=== PATIENT | male | born 1940 | race Caucasian/White ===

== ENCOUNTER → 2023-11-20 08:54 | Outpatient (REF) | payer MEDICARE, BC, SELFPAY ==
[2023-11-20 09:38] LABS: Blood Urea Nitrogen 34 mg/dl (9-20); Calcium 8.7 mg/dl (8.4-10.2); Carbon Dioxide 32 mmol/L (22-30); Chloride 93 mmol/L (98-107); Glucose 203 mg/dl (70-99); Potassium 4.4 mmol/L (3.5-5.1); Sodium 132 mmol/L (135-145); eGFR > 60.00
[2023-11-20 12:28] LABS: Osmolality Urine 390 mOsm/kg (300-900)
== END ==
LOC: REG 08:54
PROVIDERS: ATTENDING PHYSICIAN Specialist; FAMILY PHYSICIAN Student in an Organized Health Care Education/Training Program
DX: E63.8 Other specified nutritional deficiencies (principal); E87.1 Hypo-osmolality and hyponatremia; E87.5 Hyperkalemia
CPT/HCPCS: 36415; 80048; 83935; 84550

== ENCOUNTER 2023-11-27 03:06 | Emergency (ER) | payer MEDICARE, BC, SELFPAY ==
[2023-11-27 03:27] VITALS: BP 149/75
[2023-11-27 03:32] VITALS: BP 149/75
[2023-11-27 04:00] VITALS: BP 117/61
[2023-11-27 04:15] LABS: % Basophils 0.4 % (0-2); % Eosinophils 0.8 % (0-6); % Immature Granulocytes 1.5 % (0-0.5); % Monocytes 2.7 % (1.7-9.3); % Neutrophils 90.6 % (42.2-75.2); Absolute Eosinophils 0.1 10^3/uL (0-0.7); Absolute Immature Granulocytes 0.2 10^3/uL (0-0.05); Absolute Lymphocytes 0.5 10^3/uL (1.2-3.4); Absolute Monocytes 0.3 10^3/uL (0.1-0.6); Absolute Neutrophils 10.2 10^3/uL (1.4-6.5); Hemoglobin 11.1 g/dL (13.0-18.0); Mean Corp Hgb Conc. 33.6 g/dL (33.0-37.0); Mean Corpuscular Hgb 29.5 pg (27.0-31.0); Mean Corpuscular Volume 87.8 fL (80.0-94.0); Mean Platelet Volume 10.5 fL (7.4-10.4); Nucleated Red Blood Cells % 0 % (-); Platelet Count 595 10^3/uL (130-400); Red Blood Cell Count 3.76 10^6/uL (4.70-6.10); Red Cell Dist. Width 19.1 % (11.5-14.5); White Blood Cell Count 11.2 10^3/uL (4.8-10.8)
[2023-11-27 04:31] LABS: ALT (SGPT) 27 U/L (0-50); AST (SGOT) 34 U/L (17-59); Albumin 3.2 g/dl (3.5-5.0); Alkaline Phosphatase 83 U/L (38-126); Blood Urea Nitrogen 33 mg/dl (9-20); Calcium 8.4 mg/dl (8.4-10.2); Carbon Dioxide 30 mmol/L (22-30); Chloride 98 mmol/L (98-107); Glucose 102 mg/dl (70-99); Potassium 4.1 mmol/L (3.5-5.1); Sodium 133 mmol/L (135-145); Total Bilirubin 0.7 mg/dl (0.2-1.3); Total Protein 5.3 g/dl (6.3-8.2); eGFR > 60.00
--- NOTE | 2023-11-27 05:58 | ED.GENMED ---
History of Present Illness
General
Chief Complaint: Skin Surface Trauma
Source: patient and spouse
Exam Limitations: none
Time Seen by Provider: 11/27/23 04:16
Nursing documentation reviewed up to this point in time: agreed with
Travel History
Have you had any contact with someone who has COVID-19?: No
Do you have any symptoms of coronavirus? Fever > 100 degrees, chills, cough, shortness of breath, sore throat, loss of taste or smell, muscle aches, or headache?: No
History of Present Illness
History of Present Illness:
This is an 83-year-old gentleman who resides at home with his . 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 Area has been healing well with a quarter sized scab on the top of his head.
Tonight however he awoke to go to the bathroom and noticed a fair amount of blood on his pillow as well as the top of his head and he has had persistent oozing of blood from biopsy site top of his head. He denies fall, denies dizziness nor
lightheadedness. Denies scratching or picking at the scab.
He does have a history of paroxysmal atrial fibrillation and is chronically maintained on Eliquis as well as low-dose aspirin.
He has had no chest pain nor shortness of breath. No abdominal pain, no nausea or vomiting. He denies fevers or chills.
He is chronically hard of hearing and uses hearing aids.
Past History
Past History
ED Past Medical History: Arrthythmia (On determined arrhythmia suspected A. 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
ED Past Surgical History: Bowel resection (With colonoscopy then reversal in 1995), Cardiac (OUMAR cardioversion 2009), Orthopedic and Other (Hernia repair 1995 and 2008)
Social History
Tobacco: Non-smoker
Alcohol: None
Drug: None
Personal:
Living: with family
Employment: Retired
Family History
Family History: Hypertension
Phy Exam
Physical Exam
Physical Exam:
GENERAL: 83-year-old gentleman appears his stated age, bright and alert, pleasant, appears in no acute distress. There is a bloodsoaked towel atop his head.
Scalp: At the apex of the scalp is a 2.5 cm rounded superficial ulceration with mild persistent oozing of blood from anterior edge of this wound. Bleeding is probably temporized with local pressure.
EYE: pupils equal and reactive. anicteric
NECK: Supple, nontender, no meningismus, no significant adenopathy.
ENT: oral mucosa is moist. No rhinorrhea.
CARDIAC: Regular rate and rhythm. no murmur.
LUNGS: Clear breath sounds bilaterally, no acute respiratory distress, no wheezes/rales/rhonchi
ABDOMEN: Soft, nondistended, without focal tenderness, normoactive BS.
NEUROLOGICAL: Alert and oriented x3, no focal neuro deficits.
SKIN: Warm and dry, normal color, skin intact. No rash.
MUSCULOSKELETAL: No C/C/E. peripheral pulses are full and equal b/l. No palpable tenderness.
PSYCH: Normal and appropriate interaction.
Course
Orders/Labs/Results
Orders:
Orders
11/27/23 04:04
CMP [Comprehensive Metabolic Panel] Urgent
Complete Blood Count/With Diff Urgent
11/27/23 04:20
Silver Nitrate Applicator 1 each .ROUTE .STK-MED ONE
Abnormal Lab Results
11/27/23
04:04
WBC 11.2 H 10^3/uL
(4.8-10.8)
RBC 3.76 L 10^6/uL
(4.70-6.10)
Hgb 11.1 L g/dL
(13.0-18.0)
Hct 33.0 L %
(39.0-52.0)
RDW 19.1 H %
(11.5-14.5)
Plt Count 595 H 10^3/uL
(130-400)
MPV 10.5 H fL
(7.4-10.4)
Abs Immat Gran (auto) 0.2 H 10^3/uL
(0-0.05)
Absolute Neuts (auto) 10.2 H 10^3/uL
(1.4-6.5)
Absolute Lymphs (auto) 0.5 L 10^3/uL
(1.2-3.4)
Immature Gran % 1.5 H %
(0-0.5)
Neutrophils % 90.6 H %
(42.2-75.2)
Lymphocytes % 4.0 L %
(20.5-51.1)
Sodium 133 L mmol/L
(135-145)
BUN 33 H mg/dl
(9-20)
Creatinine 0.6 L mg/dL
(0.7-1.3)
Glucose 102 H mg/dl
(70-99)
Total Protein 5.3 L g/dl
(6.3-8.2)
Albumin 3.2 L g/dl
(3.5-5.0)
11/27/23 04:04
11/27/23 04:04
Vital Signs
Initial and Last Documented VS:
Initial Vital Signs
Temp Pulse Resp BP Pulse Ox
97.8 F 77 11 149/75 100
11/27/23 03:27 11/27/23 03:27 11/27/23 03:27 11/27/23 03:27 11/27/23 03:27
Last Documented Vital Signs
Temp Pulse Resp BP Pulse Ox
97.8 F 72 19 117/61 99
11/27/23 03:27 11/27/23 04:00 11/27/23 04:00 11/27/23 04:00 11/27/23 04:00
MDM/Problems Addressed
Differential Diagnosis Includes:
Patient presents with acute bleeding from post surgical/skin biopsy site apex of the scalp.
Area of locally anesthetized with 1% lidocaine with epinephrine.
I initially attempted hemostasis with local pressure and Gelfoam which was unsuccessful.
Topical silver nitrate application however has been successful in cessation of bleeding.
Monitor amount of blood and a small towel from home and a fair amount of blood streaking about the top of his head but patient remains hemodynamically stable.
Labs show hemoglobin of 11.1 which is trended down slightly from 11.9�12.8 August to November 04, 2023.
BUN of 33, at patient's baseline.
Will continue to observe in the ER for potential recurrent bleeding.
Would recommend he hold his Eliquis at least over the next 2 days.
If no return of bleeding will discharge to home with recommendations for prompt follow-up with financial accounting manager this week for recheck.
Chronic conditions affecting care: Arrhythmia (Chronically anticoagulated with Eliquis and low-dose aspirin) and Other (Acute blood loss anemia August 2023 related to right thigh hematoma)
*Pulse Oximetry
Patient hypoxic: no
*Critical Care Note
Total Time (30-74mins, 75-104mins- exclusive of procedures): Not Applicable
Update Note
Update Note:
11/27/2023 0622 AM
Scalp wound site remains dry and intact.
Will discharge to home with recommendations to touch base with financial accounting manager today for prompt wound recheck.
Recommend holding Eliquis at least over the next 3 days.
Local wound care discussed.
Return precautions discussed.
ED Attending Note
-
Portions of this chart may have been created with voice recognition software.� Occasional wrong word or��sound alike� substitutions may have occurred due to the inherent limitations of voice recognition software.
Discharge Plan
Departure
Patient Disposition: Home (Routine Discharge)
Date of Disposition: 11/27/23
Time of Disposition: 06:18
Patient with high blood pressure during this ER visit?: No
Condition: Good
Discharge Problem:
post biopsy site bleeding
Instructions: Bleeding After Surgery
Prescriptions:
No Action
esomeprazole magnesium [Nexium] 40 MG capsule,delayed release(DR/EC)
40 mg PO BID
tamsulosin 0.4 MG capsule
0.8 mg PO QPM
famotidine 40 MG tablet
40 mg PO DAILY
sildenafil [Viagra] 100 MG tablet
100 mg PO DAILYPRN PRN (Reason: ED)
Systane Ultra 10 ML drops
2 drp BOTH EYES DAILYPRN PRN (Reason: dry eyes)
Jakafi 10 MG tablet
10 mg PO BID@
loperamide 2 MG capsule
2 mg PO Q6HPRN PRN (Reason: diarrhea)
alprazolam 0.25 MG tablet
0.25 mg PO HS
Patient Comments:
08/17/2023: last filled 07/01/23, 30 tabs for 30 days from [facility]
finasteride 5 MG tablet
5 mg PO DAILY
azelaic acid [Finacea] 30 GM gel
1 applic TP BIDPRN PRN (Reason: rosacea)
polyethylene glycol 3350 [Miralax] 17 gram Powder In Packet
17 g PO DAILY PRN (Reason: constipation)
lactase [Lactaid] 3,000 unit Tablet
6,000 unit PO AC PRN (Reason: lactose intolerance)
furosemide [Lasix] 20 MG tablet
20 mg PO DAILY
pyridostigmine bromide 60 mg tablet
120 mg PO BIDPRN PRN (Reason: myasthenia graves)
acetaminophen 325 mg Tablet
650 mg PO Q4HPRN PRN (Reason: mild pain/ fever>100.5F) Qty: 100 0RF
Referrals:
Cristine Mercer MD [Family Provider] -
Activity Restrictions/Additional Instructions:
Hold your Eliquis over the next 3 to 4 days. You can continue with low-dose aspirin.
Keep the scalp area clean and dry, avoid touching, combing and avoid showering over the next 2 days.
Call your financial accounting manager today for follow-up appointment/wound check.
If bleeding recurs, hold pressure over the area for at least 10 to 15 minutes. If this is unsuccessful, continue to hold pressure for 20 minutes, if bleeding persist return to the ED for further evaluation.
Interventions
Interventions:
*Risk Screen - Suicide Last Done: 11/27/23 03:27
*General Assessment Last Done: 11/27/23 03:27
*Neglect/Abuse Screening Last Done: 11/27/23 03:27
ED- Fall Risk Assessment Last Done: 11/27/23 03:55
*ED COVID-19 Vaccine History Last Done: 11/27/23 03:55
ED-Skin Assessment Last Done: 11/27/23 03:55
== END 2023-11-27 06:29 | disposition home or self-care (01) ==
LOC: EMR 03:06
PROVIDERS: EMERGENCY PHYSICIAN Emergency Medicine; FAMILY PHYSICIAN Student in an Organized Health Care Education/Training Program
DX: L76.21 Postprocedural hemorrhage of skin and subcutaneous tissue following a dermatologic procedure (principal); Y84.8 Other medical procedures as the cause of abnormal reaction of the patient, or of later complication, without mention of misadventure at the time of the procedure; Z79.01 Long term (current) use of anticoagulants; I48.0 Paroxysmal atrial fibrillation
CPT/HCPCS: 99283; 80053; 85025

== ENCOUNTER → 2023-12-12 10:37 | Outpatient (REF) | payer MEDICARE, BC, SELFPAY ==
[2023-12-12 12:02] LABS: % Basophils 0.4 % (0-2); % Eosinophils 0.5 % (0-6); % Immature Granulocytes 1.5 % (0-0.5); % Lymphocytes 3.4 % (20.5-51.1); % Monocytes 3.1 % (1.7-9.3); % Neutrophils 91.1 % (42.2-75.2); Absolute Basophils 0.1 10^3/uL (0-0.2); Absolute Eosinophils 0.1 10^3/uL (0-0.7); Absolute Immature Granulocytes 0.3 10^3/uL (0-0.05); Absolute Lymphocytes 0.6 10^3/uL (1.2-3.4); Absolute Monocytes 0.6 10^3/uL (0.1-0.6); Absolute Neutrophils 16.6 10^3/uL (1.4-6.5); Hematocrit 35.6 % (39.0-52.0); Hemoglobin 11.7 g/dL (13.0-18.0); Mean Corp Hgb Conc. 32.9 g/dL (33.0-37.0); Mean Corpuscular Hgb 29.8 pg (27.0-31.0); Mean Corpuscular Volume 90.6 fL (80.0-94.0); Mean Platelet Volume 10.9 fL (7.4-10.4); Nucleated Red Blood Cells % 0 % (-); Platelet Count 802 10^3/uL (130-400); Red Blood Cell Count 3.93 10^6/uL (4.70-6.10); Red Cell Dist. Width 19.9 % (11.5-14.5); White Blood Cell Count 18.3 10^3/uL (4.8-10.8)
[2023-12-12 12:41] LABS: ALT (SGPT) 25 U/L (0-50); AST (SGOT) 41 U/L (17-59); Albumin 4.3 g/dl (3.5-5.0); Alkaline Phosphatase 87 U/L (38-126); Blood Urea Nitrogen 48 mg/dl (9-20); Carbon Dioxide 33 mmol/L (22-30); Chloride 94 mmol/L (98-107); Glucose 116 mg/dl (70-99); Iron 64 ug/dl (49-181); LDH 927 U/L (120-246); Potassium 4.8 mmol/L (3.5-5.1); Sodium 131 mmol/L (135-145); Total Bilirubin 0.9 mg/dl (0.2-1.3); Total Protein 6.7 g/dl (6.3-8.2); eGFR > 60.00
[2023-12-12 12:50] LABS: Percent Saturation 17 % (20-50); Total Iron Binding Capacity 371 ug/dl (261-462)
[2023-12-12 13:30] LABS: Ferritin 85.7 ng/ml (17.9-464.0)
== END ==
LOC: REG 10:37
PROVIDERS: ATTENDING PHYSICIAN Internal Medicine Hematology & Oncology
DX: D45 Polycythemia vera (principal); C43.30 Malignant melanoma of unspecified part of face
CPT/HCPCS: 36415; 80053; 82728; 83540; 83550; 83615; 85025

== ENCOUNTER → 2023-12-24 07:01 | Outpatient (REF) | payer MEDICARE, BC, SELFPAY ==
[2023-12-24 08:03] LABS: INR 1.34; PT 16.6 Sec (11.4-14.6)
[2023-12-24 08:04] LABS: APTT 37.4 Sec (23.4-35.0)
== END ==
LOC: REG 07:01
PROVIDERS: ATTENDING PHYSICIAN Internal Medicine; REFERRING PHYSICIAN Internal Medicine Hematology & Oncology
DX: Z01.818 Encounter for other preprocedural examination (principal); D45 Polycythemia vera
CPT/HCPCS: 36415; 85610; 85730

== ENCOUNTER → 2023-12-25 07:04 | Outpatient (REF) | payer MEDICARE, BC, SELFPAY ==
[2023-12-25 08:42] LABS: PT 17.2 Sec (11.4-14.6)
[2023-12-25 08:43] LABS: APTT 37.9 Sec (23.4-35.0)
[2024-01-01 19:27] LABS: Factor VIII Activity 97 % (56-191); Ristocetin Cofactor Activity 79 % (51-215); Von Willebrands Factor Antigen 125 % (52-214)
== END ==
LOC: REG 07:04
PROVIDERS: ATTENDING PHYSICIAN Internal Medicine Hematology & Oncology; FAMILY PHYSICIAN Student in an Organized Health Care Education/Training Program
DX: D45 Polycythemia vera (principal); C43.30 Malignant melanoma of unspecified part of face
CPT/HCPCS: 36415; 85240; 85245; 85246; 85247; 85610; 85730

== ENCOUNTER → 2024-01-14 08:20 | Outpatient (REF) | payer MEDICARE, BC, SELFPAY ==
[2024-01-14 08:52] LABS: % Basophils 0.4 % (0-2); % Eosinophils 0.7 % (0-6); % Immature Granulocytes 1.2 % (0-0.5); % Lymphocytes 3.2 % (20.5-51.1); % Monocytes 2.7 % (1.7-9.3); % Neutrophils 91.8 % (42.2-75.2); Absolute Basophils 0.1 10^3/uL (0-0.2); Absolute Eosinophils 0.1 10^3/uL (0-0.7); Absolute Immature Granulocytes 0.2 10^3/uL (0-0.05); Absolute Lymphocytes 0.5 10^3/uL (1.2-3.4); Absolute Monocytes 0.4 10^3/uL (0.1-0.6); Hematocrit 38.2 % (39.0-52.0); Mean Corp Hgb Conc. 31.4 g/dL (33.0-37.0); Mean Corpuscular Hgb 28.8 pg (27.0-31.0); Mean Corpuscular Volume 91.6 fL (80.0-94.0); Mean Platelet Volume 10.7 fL (7.4-10.4); Nucleated Red Blood Cells % 0 % (-); Platelet Count 680 10^3/uL (130-400); Red Blood Cell Count 4.17 10^6/uL (4.70-6.10); Red Cell Dist. Width 17.2 % (11.5-14.5); White Blood Cell Count 16.4 10^3/uL (4.8-10.8)
[2024-01-14 09:33] LABS: ALT (SGPT) 23 U/L (0-50); AST (SGOT) 37 U/L (17-59); Albumin 4.6 g/dl (3.5-5.0); Alkaline Phosphatase 82 U/L (38-126); Blood Urea Nitrogen 31 mg/dl (9-20); Calcium 9.5 mg/dl (8.4-10.2); Carbon Dioxide 29 mmol/L (22-30); Chloride 93 mmol/L (98-107); Glucose 186 mg/dl (70-99); Iron 59 ug/dl (49-181); Sodium 132 mmol/L (135-145); Total Bilirubin 0.8 mg/dl (0.2-1.3); Total Protein 6.8 g/dl (6.3-8.2); eGFR > 60.00
[2024-01-14 09:42] LABS: Potassium 4.7 mmol/L (3.5-5.1)
[2024-01-14 09:43] LABS: Percent Saturation 13 % (20-50); Total Iron Binding Capacity 431 ug/dl (261-462)
[2024-01-14 09:55] LABS: Ferritin 49.7 ng/ml (17.9-464.0)
[2024-01-14 11:04] LABS: LDH 950 U/L (120-246)
== END ==
LOC: REG 08:20
PROVIDERS: ATTENDING PHYSICIAN Internal Medicine Hematology & Oncology
DX: D45 Polycythemia vera (principal); C43.30 Malignant melanoma of unspecified part of face
CPT/HCPCS: 36415; 80053; 82728; 83540; 83550; 83615; 85025

== ENCOUNTER → 2024-02-10 14:01 | Outpatient (REF) | payer MEDICARE, BC, SELFPAY ==
[2024-02-10 14:53] LABS: % Basophils 0.4 % (0-2); % Eosinophils 0.8 % (0-6); % Immature Granulocytes 1.9 % (0-0.5); % Lymphocytes 5.3 % (20.5-51.1); % Monocytes 1.8 % (1.7-9.3); % Neutrophils 89.8 % (42.2-75.2); Absolute Basophils 0.1 10^3/uL (0-0.2); Absolute Eosinophils 0.1 10^3/uL (0-0.7); Absolute Immature Granulocytes 0.3 10^3/uL (0-0.05); Absolute Lymphocytes 0.9 10^3/uL (1.2-3.4); Absolute Monocytes 0.3 10^3/uL (0.1-0.6); Absolute Neutrophils 14.5 10^3/uL (1.4-6.5); Hematocrit 37.1 % (39.0-52.0); Hemoglobin 11.9 g/dL (13.0-18.0); Mean Corp Hgb Conc. 32.1 g/dL (33.0-37.0); Mean Corpuscular Hgb 27.2 pg (27.0-31.0); Mean Corpuscular Volume 84.9 fL (80.0-94.0); Nucleated Red Blood Cells % 0 % (-); Platelet Count 858 10^3/uL (130-400); Red Blood Cell Count 4.37 10^6/uL (4.70-6.10); Red Cell Dist. Width 16.3 % (11.5-14.5); White Blood Cell Count 16.1 10^3/uL (4.8-10.8)
[2024-02-10 15:04] LABS: ALT (SGPT) 24 U/L (0-50); AST (SGOT) 40 U/L (17-59); Albumin 4.7 g/dl (3.5-5.0); Alkaline Phosphatase 80 U/L (38-126); Blood Urea Nitrogen 50 mg/dl (9-20); Calcium 9.4 mg/dl (8.4-10.2); Carbon Dioxide 32 mmol/L (22-30); Chloride 96 mmol/L (98-107); Glucose 88 mg/dl (70-99); Iron 63 ug/dl (49-181); LDH 935 U/L (120-246); Potassium 5.2 mmol/L (3.5-5.1); Sodium 133 mmol/L (135-145); Total Bilirubin 0.6 mg/dl (0.2-1.3); Total Protein 7.1 g/dl (6.3-8.2); eGFR > 60.00
[2024-02-10 15:13] LABS: Percent Saturation 14 % (20-50); Total Iron Binding Capacity 450 ug/dl (261-462)
[2024-02-10 15:39] LABS: Ferritin 42.5 ng/ml (17.9-464.0)
[2024-02-11 13:22] LABS: Absolute Neutrophils -Man Diff 14.8 10^3/uL (1.4-6.5); Band Neutrophils 1 % (0-3); Lymphocytes 5 % (20-51); Monocytes 3 % (2-9); Platelets Checked Yes; Segmented Neutrophils 91 % (42-75)
[2024-02-11 13:23] LABS: Anisocytosis 1+; Normal RBC Morphology No; Poikilocytosis 1+
[2024-02-11 13:24] LABS: Acanthocytes Occasional; Ovalocytes 1+; Total Cells Counted 100
== END ==
LOC: REG 14:01
PROVIDERS: ATTENDING PHYSICIAN Internal Medicine Hematology & Oncology; FAMILY PHYSICIAN Student in an Organized Health Care Education/Training Program; OTHER PHYSICIAN Specialist; REFERRING PHYSICIAN Internal Medicine Cardiovascular Disease
DX: D45 Polycythemia vera (principal); C43.30 Malignant melanoma of unspecified part of face
CPT/HCPCS: 36415; 80053; 82728; 83540; 83550; 83615; 85025

== ENCOUNTER 2024-03-16 06:03 | Inpatient (IN) | payer MEDICARE, BC, SELFPAY ==
[2024-03-02 10:47] VITALS: BMI 22.3
[2024-03-02 11:39] LABS: % Basophils 0.4 % (0-2); % Eosinophils 0.9 % (0-6); % Immature Granulocytes 1.7 % (0-0.5); % Monocytes 2.7 % (1.7-9.3); % Neutrophils 89.3 % (42.2-75.2); Absolute Basophils 0.1 10^3/uL (0-0.2); Absolute Eosinophils 0.2 10^3/uL (0-0.7); Absolute Immature Granulocytes 0.3 10^3/uL (0-0.05); Absolute Lymphocytes 0.9 10^3/uL (1.2-3.4); Absolute Monocytes 0.5 10^3/uL (0.1-0.6); Absolute Neutrophils 16.5 10^3/uL (1.4-6.5); Hematocrit 36.4 % (39.0-52.0); Hemoglobin 11.6 g/dL (13.0-18.0); Mean Corp Hgb Conc. 31.9 g/dL (33.0-37.0); Mean Corpuscular Hgb 26.7 pg (27.0-31.0); Mean Corpuscular Volume 83.7 fL (80.0-94.0); Nucleated Red Blood Cells % 0 % (-); Platelet Count 786 10^3/uL (130-400); Red Blood Cell Count 4.35 10^6/uL (4.70-6.10); Red Cell Dist. Width 16.9 % (11.5-14.5); White Blood Cell Count 18.5 10^3/uL (4.8-10.8)
[2024-03-02 11:58] LABS: INR 1.54; PT 18.3 Sec (11.4-14.6)
[2024-03-02 12:41] LABS: ALT (SGPT) 26 U/L (0-50); AST (SGOT) 43 U/L (17-59); Albumin 4.6 g/dl (3.5-5.0); Alkaline Phosphatase 94 U/L (38-126); Blood Urea Nitrogen 29 mg/dl (9-20); Calcium 9.1 mg/dl (8.4-10.2); Carbon Dioxide 33 mmol/L (22-30); Chloride 94 mmol/L (98-107); Estimated Creatinine Clearance 57 ml/min; Glucose 81 mg/dl (70-99); Sodium 135 mmol/L (135-145); Total Bilirubin 0.6 mg/dl (0.2-1.3); eGFR > 60.00
[2024-03-16] VITALS (15 sets, daily range): BP systolic 93–129; BP diastolic 63–90; BMI 22.3
[2024-03-16 08:52] LABS: ACT-LR - POC 244 Seconds (116-155)
--- NOTE | 2024-03-16 09:36 | ITS.CL.PN ---
Regional Education Manager - Procedure Note
Procedure
Procedure Note:
Watchman implantation report
Date: March 16, 2024
Referring: Dr. Herminio Nelson
History: History of spontaneous right thigh bleeding and polycythemia vera. History of TIA and CVA with permanent atrial fibrillation.
Device implantation: Dr. Bowman
Transseptal twister operator: Dr. Nelson
Procedure report:
After informed consent and patient safety timeout the patient was put under general anesthesia and Dr. Munguia performed transesophageal echo. At baseline there was a moderate pericardial effusion without right atrial or right ventricular collapse
and as below right atrial pressure of 6 and left atrial pressure of 20 demonstrating with both visual and hemodynamic evidence demonstrating no tamponade physiology. As such we proceeded with the patient's watchman implantation. Transthoracic echo
pictures will be taken post procedure and checked in 6 weeks in follow-up. Under ultrasound guidance an 8 Sami and 9 Sami short sheath were placed in the right femoral vein and upgraded to the 10 Sami steerable sheath of transseptal puncture
and ultimately the watchman sheath.
After ruling out left atrial thrombus the patient was heparinized for an ACT between 350-400 seconds and under intracardiac ultrasound guidance transseptal puncture was performed. Right atrial pressure implantation millimeters mercury and left
atrial pressure 20 millimeters mercury.
Baseline intracardiac ultrasound demonstrated no pericardial effusion post procedure demonstrated no pericardial effusion.
Once transseptal puncture was performed over an ProTrac wire the SL 1 sheath was exchanged for a watchman sheath double curve. An appendage gram was performed demonstrating cauliflower anatomy. Pigtail catheter was placed into the left atrial
appendage and intravenous dye given demonstrating 22 mm ostium.
We then utilized a 27 millimeters device and no leaks were seen post device deployment. 22 to 34% compression was noted in the device after deployment. A tilt test was performed demonstrating stability of the device and the device was then
deployed. Sheaths and catheters removed from the left atrium and heparin was reversed. Catheters removed from the femoral veins with [id number] suture applied. The patient tolerated the procedure well.
Scnviy-[id number] suture was placed to the right groin.
Impression: Status post watchman placement
Plan:
Given the new diagnosis of pericardial effusion we will repeat a transthoracic echo in 6 weeks and his OUMAR at 3 months with an anticoagulation plan of aspirin plus half dose Eliquis 2.5 mg twice daily until the OUMAR. His effusion is not
hemodynamically significant and appears serous we will follow this observantly with serial echocardiograms and follow for clinical symptoms.
--- NOTE | 2024-03-16 10:43 | WATCHMAN.MD ---
Watchman Implant
-
ELECTROPHYSIOLOGY/INTERVENTIONAL PROCEDURE REPORT
Date of Procedure: March 16, 2024
Referring: Dr. Herminio Nelson
Assisting Physician: Dr. Herminio Nelson
PROCEDURES:
1. Left atrial appendage occlusion device using 27 mm WATCHMAN FLX device
2. Intracardiac echocardiography
3. Ultrasound-guided right common femoral venous access
INDICATION: History of spontaneous right thigh bleeding and polycythemia vera in the setting of prior TIA/CVA with permanent atrial fibrillation
ACCESS: Right common femoral vein, 8Fr sheath and 9Fr. sheaths, under US guidance.
HEMODYNAMICS : (mmHg)
RA Pressure : 6
LA Pressure: 20
PROCEDURE REPORT:
After informed consent and patient safety 'Timeout' the patient was intubated and sedated by the anesthesiology service. Under ultrasound guidance, the right femoral vein was accessed by Dr. Herminio Nelson twice for transseptal puncture and
intracardiac ultrasound, respectively. Concomitant transesophageal echocardiogram was performed by Dr. Joseph Munguia
Baseline intracardiac ultrasound demonstrated no pericardial effusion and baseline OUMAR images revealed a trace pericardial effusion.
After ruling out a left atrial appendage thrombus, the patient was heparinized for an ACT between 350-400 seconds and under OUMAR and intracardiac ultrasound guidance transseptal puncture was performed by Dr. Herminio Nelson using an SL-1 catheter and
71cm BRK trans-septal needle in a mid position on the inferior-superior axis and a mid position on the anterior-posterior axis. Right atrial pressure was 6 millimeters mercury and left atrial pressure was 20 millimeters mercury.
Once transseptal puncture was performed over a ProTrac 0.035 wire parked in the left superior pulmonary vein, the SL 1 sheath was exchanged for a watchman access double curve sheath. A 5 Nepali pigtail catheter was placed into the left atrial
appendage and an appendage gram was performed using intravenous contrast dye demonstrating a 22 mm ostium suitable likely for a 27 mm WATCHMAN FLX device.
After appropriately prepping the device, Dr. Diana Bowman successfully deployed a 27 mm WATCHMAN FLX device. Device showed excellent positioning with no leaks post device deployment. 22 to 34 % compression was noted in the device after deployment.
A 'tug-test' was performed demonstrating stability of the device. Given PASS criteria were met, the device was then released successfully by Dr. Diana Bowman
Post procedure, OUMAR imaging demonstrated no worse pericardial effusion. Sheaths and catheters were removed from the left atrium and heparin was reversed using protamine. Catheters removed from the femoral veins with [id number] suture applied.
The patient tolerated the procedure well.
RADIATION SUMMARY: Fluoro Time (min): 8.3, Dose (mGy): 108.2, DAP (Gy.cm2) : 11.2
Closure Device: Figure of 8 suture
CONCLUSIONS
1. Successful deployment of 27 mm WATCHMAN FLX device under OUMAR and ICE guidance.
RECOMMENDATIONS
1. Plan for Eliquis 2.5 mg twice daily along with daily baby aspirin 81 mg for the next 3 months.
2. 3-month OUMAR post procedure to assess stability of device and rule out any cholo-device leaks.
3. Figure of 8 suture removal prior to discharge.
Copy to: Herminio Nelson
Diana Bowman MD, [facility], [facility]
--- NOTE | 2024-03-16 11:06 | WATCHMAN ---
Watchman
Wathcman Procedure
Referred by:: Leslie
Date of Referral:: 10/15/23
Team discussion date:: 11/11/23
[id number] Score
Age in Years (65=0, 65-74=1, >/=75=2): > or = 75
Sex (Female=+1): Male
Congestive Heart Failure History (Yes=+1): No
Hypertension History (Yes=+1): No
Stroke/TIA/Thromboembolism History (Yes=+2): Yes
Vascular Disease History (Yes=+1): No
Diabetes Mellitus (Yes=+1): No
Score: 4
Anticoagulation Recommendations: Recommend anticoagulation (as validated in nonvalvular fib)
HASBLED Score
Hypertenstion (uncontrolled >160mmHG systolic): No
Renal disease (dialysis, transplant, Cr >2.26mg/dL or >200umol/L): No
Liver disease (cirrhosis or bilirubin >2x normal w/ AST/ALT/AP >3x normal: No
Stroke history: Yes
Prior major bleeding or predisposition to bleeding: Yes
Labile INR(unsable/high INRs,time in therapeutic range <60%): No
Age >65: Yes
Medication usage predisposing to bleeding(ASA, NSAIDS): No
Alcohol use (>/= 8 drinks/week): No
Score: 3
Risk: Alternatives to anticoagulation should be considered: Patient is at high risk for major bleeding
CT Scan
EBER size/Shape:: chicken wing
Physician Visits
Police Chief:: Leslie
Date of Visit:: 10/15/23
Primary Email Deployment Specialist:: Leslie
PCP:: Sylvie
Oral Anticoagulation
Post procedure anticoagulation plan:: Eliquis 2.5mg BID + ASA 81mg x 3 months until OUMAR
Plan
Plan:: 11/11/2023: Patient reviewed at the SDM meeting by the Heart Team. Team felt watchman was an appropriate treatment and the patient's anatomy would accommodate a 24mm device. Called patient to update and schedule and would like to wait until
after he sees Dr. Nelson on 12/05/2023 to discuss further.
12/05/2023: Patient would like to proceed with watchman. Will call to schedule.
03/16/2024: Patient reviewed at pre-Watchman meeting. Team feels 24mm device but will confirm sizing with OUMAR prior to implant. Will discharge on Eliquis 2.5mg + ASA 81mg for 3 months at which time he will have a follow up OUMAR.
--- NOTE | 2024-03-16 14:49 | PTCARENOTE ---
[facility]. patient taken from stretcher to bed. groin noticed to start to bleed.pressure held 5mins. bleeding stopped. re dressed site. c/d/i. will continue to monitor.
[2024-03-16] MEDS: PROSCAR PO (16:16)
--- NOTE | 2024-03-16 16:44 | CM ---
Chart reviewed. Patient is independent of ADLS, lives with his in a [address], 1st floor set up, ambulates with a SPC. Patient is not current with [facility], but has used [facility] in the past. Patient is interested in [facility]. [facility] Plan is
for the patient to return home with VN. CM to follow
[2024-03-16] MEDS: TUMS 1 TABLET PO (17:28)
[2024-03-16] MEDS: ELIQUIS 2.5 MG PO (19:36)
[2024-03-16] MEDS: NON-FORMULARY ITEM 1 MG PO (19:36)
[2024-03-16] MEDS: PROTONIX PO (19:36)
[2024-03-16] MEDS: XANAX 0.25 MG PO (21:17)
[2024-03-16] MEDS: FLOMAX 0.800000000000000044 MG PO (21:17)
--- NOTE | 2024-03-17 02:51 | PTCARENOTE ---
Right groin intact, no hematoma noted at this time. Bilateral pedal pulses palpable. Tele monitor shows Afib w/ occasional PVCs. HR in the 70-90s. Denies any pain or discomfort. Call willams in reach.
[2024-03-17 04:32] VITALS: BP 98/67
[2024-03-17 04:41] VITALS: BMI 21.6
[2024-03-17] MEDS: TUMS 1 TABLET PO (04:48)
[2024-03-17 04:57] LABS: Hematocrit 34.3 % (39.0-52.0); Hemoglobin 10.8 g/dL (13.0-18.0); Mean Corp Hgb Conc. 31.5 g/dL (33.0-37.0); Mean Corpuscular Hgb 26.5 pg (27.0-31.0); Mean Corpuscular Volume 84.3 fL (80.0-94.0); Platelet Count 677 10^3/uL (130-400); Red Blood Cell Count 4.07 10^6/uL (4.70-6.10); Red Cell Dist. Width 17.2 % (11.5-14.5); White Blood Cell Count 19.3 10^3/uL (4.8-10.8)
[2024-03-17 05:21] LABS: Blood Urea Nitrogen 27 mg/dl (9-20); Calcium 9.3 mg/dl (8.4-10.2); Carbon Dioxide 29 mmol/L (22-30); Chloride 97 mmol/L (98-107); Estimated Creatinine Clearance 63 ml/min; Glucose 88 mg/dl (70-99); Magnesium 2.3 mg/dl (1.6-2.3); Sodium 133 mmol/L (135-145); eGFR > 60.00
[2024-03-17 05:26] LABS: Potassium 5.1 mmol/L (3.5-5.1)
[2024-03-17 06:31] VITALS: BP 95/70
[2024-03-17] MEDS: ELIQUIS 2.5 MG PO (08:17)
[2024-03-17] MEDS: PROTONIX 40 MG PO (08:17)
[2024-03-17] MEDS: LOW STRENGTH ASPIRIN 81 MG PO (08:17)
[2024-03-17] MEDS: LASIX 20 MG PO (08:18)
[2024-03-17] MEDS: PROSCAR 5 MG PO (08:18)
[2024-03-17] MEDS: NON-FORMULARY ITEM 1 MG PO (08:41)
--- NOTE | 2024-03-17 09:45 | W.PN.CARDCBS ---
Addendum entered and electronically signed by Herminio Nelson MD 03/17/24 10:56:
Patient seen and examined
Agree with LICENSED CERTIFIED ORTHOTIST note and assessment
Agree with LICENSED CERTIFIED ORTHOTIST plan
Examination:
Alert and x 3
Nonfocal neurologically
Atrial fibrillation on telemetry
Vital signs noted
JVP 6
Remainder of examination per LICENSED CERTIFIED ORTHOTIST note
Impression:
Symptomatic Persistent atrial fibrillation.
Right lower extremity spontaneous hematoma.
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
CVA left parietal 2009, appearing embolic with recent TIA.
PVCs/ Atrial tachycardia.
Melanoma in situ 2014 status post excision.
Polycythemia vera.
Myasthenia gravis.
Diverticular disease with history of colon resection.
Gastroesophageal reflux disease.
Dysphagia with history of esophageal candidiasis.
BPH.
Anemia.
Anxiety.
Hyponatremia.
Coronary calcium score 3284.89.
Plan:
post 27mm Watchman device implant 03/16/24
Moderate pericardial effusion noted pre/post implant
groin stable
tele Afib with PVC's
OAC Eliquis 2.5mg bid, and ASA 81mg daily. Plan is for duration of Eliquis 2.5 mg twice daily for 3 months
will check TTE in 6 weeks to reassess effusion
f/u OUMAR in 3 mo
Activity restrictions reviewed
f/u DCA 2-4 weeks
home today
Original Note:
Today's Communication / Plan
-
Post Watchman device implant
stable for d/c home
Impression / Plan
-
PCP: Cristine Mercer MD
CDY: Herminio Nelson MD
Impression:
Symptomatic Persistent atrial fibrillation.
Right lower extremity spontaneous hematoma.
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
CVA left parietal 2009, appearing embolic with recent TIA.
PVCs/ Atrial tachycardia.
Melanoma in situ 2014 status post excision.
Polycythemia vera.
Myasthenia gravis.
Diverticular disease with history of colon resection.
Gastroesophageal reflux disease.
Dysphagia with history of esophageal candidiasis.
BPH.
Anemia.
Anxiety.
Hyponatremia.
Coronary calcium score 3284.89.
Plan:
post 27mm Watchman device implant 03/16/24
Moderate pericardial effusion noted pre/post implant
groin stable
tele Afib with PVC's
OAC Eliquis 2.5mg bid, and ASA 81mg daily
will check TTE in 6 weeks to reassess effusion
f/u OUMAR in 3 mo
Activity restrictions reviewed
f/u DCA 2-4 weeks
home today
Progress Note - Floor Plan Adjuster
Subjective
Date of Service: March 17, 2024
no cp, sob
Objective
Labs:
03/17/24 04:40
03/17/24 04:40
Labs
Hgb 10.8 g/dL (13.0-18.0) L 03/17/24 04:40
Hct 34.3 % (39.0-52.0) L 03/17/24 04:40
Plt Count 677 10^3/uL (130-400) H 03/17/24 04:40
PT 18.3 Sec (11.4-14.6) H 03/02/24 11:19
INR 1.54 03/02/24 11:19
Sodium 133 mmol/L (135-145) L 03/17/24 04:40
Potassium 5.1 mmol/L (3.5-5.1) 03/17/24 04:40
BUN 27 mg/dl (9-20) H 03/17/24 04:40
Creatinine 0.7 mg/dL (0.7-1.3) 03/17/24 04:40
Glucose 88 mg/dl (70-99) 03/17/24 04:40
Vital Signs and I&O:
Vital Signs
Temp Pulse Resp BP Pulse Ox
97.8 F 87 20 95/70 98
03/17/24 06:29 03/17/24 08:00 03/17/24 06:29 03/17/24 06:31 03/17/24 08:00
Vital Signs
Temp Pulse Resp BP Pulse Ox
97.8 F 87 20 95/70 98
03/17/24 06:29 03/17/24 08:00 03/17/24 06:29 03/17/24 06:31 03/17/24 08:00
Intake & Output
03/15/24 03/16/24 03/17/24 03/18/24
06:59 06:59 06:59 06:59
Intake Total 240 / 240
Output Total 1200 / 1200
Balance -960 / -960
Physical Exam
Physical Exam
NAD< AOX3
S1, S2, irreg irreg
CTAB, non labored
SNTND bsx4
R fem site c/d/i no HT, soft
--- NOTE | 2024-03-17 10:55 | PTCARENOTE ---
Pt remains in afib, rate in the 70's to 80's. Denies any pain, sob or discomfort. Right groin site dressing remains dry and intact with no hematoma. Pt discharged to home with his . Discharge instructions given and reviewed with pt and his
with good understanding.
--- NOTE | 2024-03-17 12:03 | W.DS.TRANS ---
DC Summary - Metal Hanging Helper
-
Discharge Instructions:
Sleep Apnea Risk Intermediate
Discharge Diagnosis/Procedures Afib post Watchman device implant
Diet Low Cholesterol
Driving Restrictions No driving for 24 hours
Others Tests Follow up OUMAR is scheduled at [facility] on 06/17/[facility]. You will receive a call
with instructions and date for pre-admission
testing.
Instructions:
Stand-Alone Forms: DC Instructions- Cath/EP Lab
Changes to Home Medications: No
Discharge Medications:
DC Medications w/original date entered in [employer]
esomeprazole magnesium 40 mg capsule,delayed release (Nexium) 40 mg PO BID GERD 09/09/12
tamsulosin 0.4 mg capsule 0.8 mg PO QPM BPH 01/25/13
famotidine 40 mg tablet 40 mg PO DAILY GERD 09/10/13
sildenafil 100 mg tablet (Viagra) 100 mg PO DAILYPRN PRN ED 09/10/13
peg 400-propylene glycol 0.4 %-0.3 % eye drops (Systane Ultra) 2 drp BOTH EYES DAILYPRN PRN dry eyes 03/24/17
ruxolitinib 10 mg tablet (Jakafi) 10 mg PO BID@0845,2044 Polycythemia vera 03/24/17
alprazolam 0.25 mg tablet 0.25 mg PO HS PRN generalized anxiety disorder 02/10/20
finasteride 5 mg tablet 5 mg PO DAILY BPH 02/10/20
loperamide 2 mg capsule 2 mg PO Q6HPRN PRN diarrhea 02/10/20
furosemide 20 mg tablet (Lasix) 20 mg PO DAILY Chronic HFpEF 01/17/23
lactase 3,000 unit tablet (Lactaid) 6,000 unit PO AC PRN lactose intolerance 01/17/23
polyethylene glycol 3350 17 gram oral powder packet (Miralax) 17 g PO DAILY PRN constipation 01/17/23
pyridostigmine bromide 60 mg tablet 120 mg PO BIDPRN PRN myasthenia graves 08/17/23
acetaminophen 325 mg tablet 650 mg (2 x 325 mg) PO Q4HPRN PRN mild pain/ fever>100.5F #100 tabs 08/20/23
apixaban 2.5 mg tablet (Eliquis) 2.5 mg PO BID 02/24/24
aspirin 81 mg capsule 81 mg PO DAILY 02/24/24
azelaic acid 15 % topical gel 1 applic topical HS PRN Rosacea 02/24/24
calcium carbonate (Tums) 200 - 400 mg PO PRN PRN Indigestion 02/24/24
saliva substitute combo no.9 (Biotene Dry Mouth Oral Rinse mouthwash) 15 ml mucous membrane PRN PRN Dry Mouth 02/24/24
urea 15 gram oral powder packet (Ure-Na) 1 packet PO DAILY 02/24/24
Home Medication Changes
Pending Results: No
== END 2024-03-17 10:56 | disposition home health service (06) | DRG 274 ==
LOC: IVU 06:03
PROVIDERS: Nurse Practitioner Adult Health; ADMITTING PHYSICIAN Internal Medicine Cardiovascular Disease; FAMILY PHYSICIAN Student in an Organized Health Care Education/Training Program
PROC: B24BZZ4 Ultrasonography of Heart with Aorta, Transesophageal (ICD-10-PCS; 2024-03-16)
PROC: 02L73DK Occlusion of Left Atrial Appendage with Intraluminal Device, Percutaneous Approach (ICD-10-PCS; 2024-03-16)
DX: I48.21 Permanent atrial fibrillation (principal); Z00.6 Encounter for examination for normal comparison and control in clinical research program; E87.1 Hypo-osmolality and hyponatremia; I31.39 Other pericardial effusion (noninflammatory); I47.19 Other supraventricular tachycardia; I49.3 Ventricular premature depolarization; M79.81 Nontraumatic hematoma of soft tissue; I25.10 Atherosclerotic heart disease of native coronary artery without angina pectoris; D45 Polycythemia vera; G70.00 Myasthenia gravis without (acute) exacerbation; K21.9 Gastro-esophageal reflux disease without esophagitis; R13.10 Dysphagia, unspecified; N40.0 Benign prostatic hyperplasia without lower urinary tract symptoms; D64.9 Anemia, unspecified; F41.9 Anxiety disorder, unspecified; Z79.82 Long term (current) use of aspirin; Z79.01 Long term (current) use of anticoagulants; Z86.006 Personal history of melanoma in-situ; Z90.49 Acquired absence of other specified parts of digestive tract; Z87.19 Personal history of other diseases of the digestive system; Z86.73 Personal history of transient ischemic attack (TIA), and cerebral infarction without residual deficits
CPT/HCPCS: 33340; 36415; 80048; 80053; 83735; 85025; 85027; 85347; 85610; 86850; 86900; 86901; 87070; 93005; 93355; C1759; C1766; C1892; Q9967

== ENCOUNTER → 2024-04-01 06:49 | Outpatient (REF) | payer MEDICARE, BC, SELFPAY ==
[2024-04-01 07:23] LABS: % Basophils 0.3 % (0-2); % Eosinophils 1.4 % (0-6); % Immature Granulocytes 1.5 % (0-0.5); % Lymphocytes 4.7 % (20.5-51.1); % Monocytes 2.4 % (1.7-9.3); % Neutrophils 89.7 % (42.2-75.2); Absolute Basophils 0.1 10^3/uL (0-0.2); Absolute Eosinophils 0.2 10^3/uL (0-0.7); Absolute Immature Granulocytes 0.2 10^3/uL (0-0.05); Absolute Lymphocytes 0.7 10^3/uL (1.2-3.4); Absolute Monocytes 0.4 10^3/uL (0.1-0.6); Hemoglobin 11.3 g/dL (13.0-18.0); Mean Corp Hgb Conc. 30.5 g/dL (33.0-37.0); Mean Corpuscular Hgb 25.4 pg (27.0-31.0); Mean Corpuscular Volume 83.1 fL (80.0-94.0); Nucleated Red Blood Cells % 0 % (-); Platelet Count 722 10^3/uL (130-400); Red Blood Cell Count 4.45 10^6/uL (4.70-6.10); Red Cell Dist. Width 17.7 % (11.5-14.5); White Blood Cell Count 15.6 10^3/uL (4.8-10.8)
[2024-04-01 07:40] LABS: NT-proBNP 1080 pg/ml
[2024-04-01 08:01] LABS: ALT (SGPT) 19 U/L (0-50); AST (SGOT) 35 U/L (17-59); Albumin 4.1 g/dl (3.5-5.0); Alkaline Phosphatase 105 U/L (38-126); Blood Urea Nitrogen 26 mg/dl (9-20); Carbon Dioxide 32 mmol/L (22-30); Chloride 94 mmol/L (98-107); Glucose 100 mg/dl (70-99); LDH 879 U/L (120-246); Sodium 132 mmol/L (135-145); Total Bilirubin 0.8 mg/dl (0.2-1.3); Total Protein 6.6 g/dl (6.3-8.2); eGFR > 60.00
[2024-04-01 08:11] LABS: Iron 41 ug/dl (49-181); Percent Saturation 10 % (20-50); Total Iron Binding Capacity 381 ug/dl (261-462)
[2024-04-01 08:40] LABS: Ferritin 43.4 ng/ml (17.9-464.0)
== END ==
LOC: REG 06:49
PROVIDERS: ATTENDING PHYSICIAN Internal Medicine Hematology & Oncology; FAMILY PHYSICIAN Student in an Organized Health Care Education/Training Program; REFERRING PHYSICIAN Specialist
DX: E87.1 Hypo-osmolality and hyponatremia (principal); D45 Polycythemia vera; C43.30 Malignant melanoma of unspecified part of face
CPT/HCPCS: 36415; 80053; 82728; 83540; 83550; 83615; 83880; 85025

== ENCOUNTER → 2024-04-26 13:36 | Outpatient (REF) | payer MEDICARE, BC, SELFPAY | LOC: RCS 13:36 | PROVIDERS: ATTENDING PHYSICIAN Nurse Practitioner Adult Health; FAMILY PHYSICIAN Student in an Organized Health Care Education/Training Program | DX: I35.1 Nonrheumatic aortic (valve) insufficiency (principal) | CPT/HCPCS: 93306 ==

== ENCOUNTER → 2024-05-06 13:04 | Outpatient (REF) | payer MEDICARE, BC, SELFPAY ==
[2024-05-06 14:22] LABS: Hemoglobin 11.5 g/dL (13.0-18.0); Mean Corp Hgb Conc. 31.1 g/dL (33.0-37.0); Mean Corpuscular Hgb 25.6 pg (27.0-31.0); Mean Corpuscular Volume 82.2 fL (80.0-94.0); Platelet Count 835 10^3/uL (130-400); Red Cell Dist. Width 19.2 % (11.5-14.5); White Blood Cell Count 17.6 10^3/uL (4.8-10.8)
[2024-05-06 14:28] LABS: % Basophils 0.5 % (0-2); % Eosinophils 0.8 % (0-6); % Immature Granulocytes 1.5 % (0-0.5); % Lymphocytes 4.8 % (20.5-51.1); % Monocytes 1.5 % (1.7-9.3); % Neutrophils 90.9 % (42.2-75.2); Absolute Basophils 0.1 10^3/uL (0-0.2); Absolute Eosinophils 0.1 10^3/uL (0-0.7); Absolute Immature Granulocytes 0.3 10^3/uL (0-0.05); Absolute Lymphocytes 0.8 10^3/uL (1.2-3.4); Absolute Monocytes 0.3 10^3/uL (0.1-0.6); Nucleated Red Blood Cells % 0 % (-)
[2024-05-06 14:31] LABS: Absolute Neutrophils -Man Diff 15.8 10^3/uL (1.4-6.5); Band Neutrophils 1 % (0-3); Lymphocytes 6 % (20-51); Metamyelocytes 1 % (-); Monocytes 3 % (2-9); Platelets Checked Yes; Segmented Neutrophils 89 % (42-75)
[2024-05-06 14:32] LABS: Normal RBC Morphology Yes; Total Cells Counted 100
[2024-05-06 15:05] LABS: ALT (SGPT) 21 U/L (0-50); AST (SGOT) 43 U/L (17-59); Albumin 4.7 g/dl (3.5-5.0); Alkaline Phosphatase 98 U/L (38-126); Blood Urea Nitrogen 50 mg/dl (9-20); Calcium 9.5 mg/dl (8.4-10.2); Carbon Dioxide 33 mmol/L (22-30); Chloride 93 mmol/L (98-107); Glucose 124 mg/dl (70-99); Iron 61 ug/dl (49-181); Potassium 5.4 mmol/L (3.5-5.1); Sodium 132 mmol/L (135-145); Total Bilirubin 0.6 mg/dl (0.2-1.3); eGFR > 60.00
[2024-05-06 15:14] LABS: Percent Saturation 14 % (20-50); Total Iron Binding Capacity 424 ug/dl (261-462)
[2024-05-06 15:40] LABS: Ferritin 37.3 ng/ml (17.9-464.0)
[2024-05-06 15:42] LABS: LDH 967 U/L (120-246)
== END ==
LOC: REG 13:04
PROVIDERS: ATTENDING PHYSICIAN Internal Medicine Hematology & Oncology; FAMILY PHYSICIAN Student in an Organized Health Care Education/Training Program
DX: D45 Polycythemia vera (principal); C43.30 Malignant melanoma of unspecified part of face; C49.0 Malignant neoplasm of connective and soft tissue of head, face and neck
CPT/HCPCS: 36415; 80053; 82728; 83540; 83550; 83615; 85025

== ENCOUNTER → 2024-06-09 10:19 | Outpatient (REF) | payer MEDICARE, BC, SELFPAY | LOC: SDSPAT 10:19 | PROVIDERS: ATTENDING PHYSICIAN Internal Medicine Cardiovascular Disease; FAMILY PHYSICIAN Student in an Organized Health Care Education/Training Program; OTHER PHYSICIAN Internal Medicine Cardiovascular Disease | DX: Z01.818 Encounter for other preprocedural examination (principal); I48.19 Other persistent atrial fibrillation | CPT/HCPCS: 93005 ==

== ENCOUNTER → 2024-06-10 14:02 | Outpatient (REF) | payer MEDICARE, BC, SELFPAY ==
[2024-06-10 14:58] LABS: Hematocrit 35.7 % (39.0-52.0); Hemoglobin 11.3 g/dL (13.0-18.0); Mean Corp Hgb Conc. 31.7 g/dL (33.0-37.0); Mean Corpuscular Hgb 25.7 pg (27.0-31.0); Mean Corpuscular Volume 81.3 fL (80.0-94.0); Mean Platelet Volume 10.6 fL (7.4-10.4); Platelet Count 810 10^3/uL (130-400); Red Blood Cell Count 4.39 10^6/uL (4.70-6.10); Red Cell Dist. Width 18.4 % (11.5-14.5); White Blood Cell Count 15.9 10^3/uL (4.8-10.8)
[2024-06-10 14:59] LABS: % Basophils 0.4 % (0-2); % Eosinophils 0.9 % (0-6); % Immature Granulocytes 1.8 % (0-0.5); % Lymphocytes 3.5 % (20.5-51.1); % Monocytes 2.9 % (1.7-9.3); % Neutrophils 90.5 % (42.2-75.2); Absolute Basophils 0.1 10^3/uL (0-0.2); Absolute Eosinophils 0.1 10^3/uL (0-0.7); Absolute Immature Granulocytes 0.3 10^3/uL (0-0.05); Absolute Lymphocytes 0.6 10^3/uL (1.2-3.4); Absolute Monocytes 0.5 10^3/uL (0.1-0.6); Absolute Neutrophils 14.4 10^3/uL (1.4-6.5); Nucleated Red Blood Cells % 0 % (-)
[2024-06-10 15:07] LABS: Potassium, Plasma 4.4 mMOL/L
[2024-06-10 15:09] LABS: ALT (SGPT) 21 U/L (0-50); AST (SGOT) 42 U/L (17-59); Albumin 4.7 g/dl (3.5-5.0); Alkaline Phosphatase 82 U/L (38-126); Blood Urea Nitrogen 48 mg/dl (9-20); Calcium 9.7 mg/dl (8.4-10.2); Carbon Dioxide 34 mmol/L (22-30); Chloride 94 mmol/L (98-107); Glucose 126 mg/dl (70-99); Iron 53 ug/dl (49-181); LDH 904 U/L (120-246); Potassium 5.3 mmol/L (3.5-5.1); Sodium 137 mmol/L (135-145); Total Bilirubin 0.6 mg/dl (0.2-1.3); eGFR > 60.00
[2024-06-10 15:18] LABS: Percent Saturation 11 % (20-50); Total Iron Binding Capacity 453 ug/dl (261-462)
[2024-06-10 15:48] LABS: Absolute Neutrophils -Man Diff 14.9 10^3/uL (1.4-6.5); Atypical Lymphocytes 1 %; Band Neutrophils 0 % (0-3); Eosinophils 1 % (0-6); Lymphocytes 2 % (20-51); Myelocytes 2 % (-); Platelets Checked Yes; Segmented Neutrophils 94 % (42-75); Total Cells Counted 100
[2024-06-10 15:50] LABS: Ferritin 22.8 ng/ml (17.9-464.0)
[2024-06-10 15:53] LABS: Normal RBC Morphology No
[2024-06-10 15:54] LABS: Acanthocytes Occasional; Anisocytosis 2+; Macrocytosis 2+; Ovalocytes 1+; Poikilocytosis 2+
== END ==
LOC: REG 14:02
PROVIDERS: ATTENDING PHYSICIAN Specialist; FAMILY PHYSICIAN Student in an Organized Health Care Education/Training Program; REFERRING PHYSICIAN Internal Medicine Hematology & Oncology
DX: D45 Polycythemia vera (principal); C43.30 Malignant melanoma of unspecified part of face; C49.0 Malignant neoplasm of connective and soft tissue of head, face and neck; E87.1 Hypo-osmolality and hyponatremia; E87.5 Hyperkalemia; N13.30 Unspecified hydronephrosis; E87.20 Acidosis, unspecified
CPT/HCPCS: 36415; 80053; 82728; 83540; 83550; 83615; 84132; 85025

== ENCOUNTER → 2024-06-17 07:05 | Day surgery (SDC) | payer MEDICARE, BC, SELFPAY ==
[2024-06-09 10:23] VITALS: BMI 20.4
== END ==
LOC: CATH 07:05
PROVIDERS: ATTENDING PHYSICIAN Internal Medicine Cardiovascular Disease; OTHER PHYSICIAN Internal Medicine Cardiovascular Disease; PRIMARYCARE PHYSICIAN Student in an Organized Health Care Education/Training Program
DX: Z45.09 Encounter for adjustment and management of other cardiac device (principal); I08.3 Combined rheumatic disorders of mitral, aortic and tricuspid valves; I48.19 Other persistent atrial fibrillation; I49.3 Ventricular premature depolarization; I47.19 Other supraventricular tachycardia; Z86.73 Personal history of transient ischemic attack (TIA), and cerebral infarction without residual deficits; Z85.820 Personal history of malignant melanoma of skin; K21.9 Gastro-esophageal reflux disease without esophagitis; N40.0 Benign prostatic hyperplasia without lower urinary tract symptoms; F41.9 Anxiety disorder, unspecified; G70.00 Myasthenia gravis without (acute) exacerbation; Z79.82 Long term (current) use of aspirin; Z79.01 Long term (current) use of anticoagulants
CPT/HCPCS: 93312; 93320; 93325

== ENCOUNTER → 2024-07-13 11:45 | Outpatient (REF) | payer MEDICARE, BC, SELFPAY ==
[2024-07-13 12:34] LABS: % Basophils 0.4 % (0-2); % Lymphocytes 4.2 % (20.5-51.1); % Monocytes 2.8 % (1.7-9.3); % Neutrophils 89.6 % (42.2-75.2); Absolute Basophils 0.1 10^3/uL (0-0.2); Absolute Eosinophils 0.2 10^3/uL (0-0.7); Absolute Immature Granulocytes 0.3 10^3/uL (0-0.05); Absolute Lymphocytes 0.7 10^3/uL (1.2-3.4); Absolute Monocytes 0.5 10^3/uL (0.1-0.6); Absolute Neutrophils 14.9 10^3/uL (1.4-6.5); Hematocrit 37.5 % (39.0-52.0); Hemoglobin 11.6 g/dL (13.0-18.0); Mean Corp Hgb Conc. 30.9 g/dL (33.0-37.0); Mean Corpuscular Hgb 25.3 pg (27.0-31.0); Mean Corpuscular Volume 81.9 fL (80.0-94.0); Mean Platelet Volume 11.1 fL (7.4-10.4); Nucleated Red Blood Cells % 0 % (-); Platelet Count 773 10^3/uL (130-400); Red Blood Cell Count 4.58 10^6/uL (4.70-6.10); Red Cell Dist. Width 18.2 % (11.5-14.5); White Blood Cell Count 16.6 10^3/uL (4.8-10.8)
[2024-07-13 12:46] LABS: Absolute Neutrophils -Man Diff 15.7 10^3/uL (1.4-6.5); Band Neutrophils 0 % (0-3); Lymphocytes 3 % (20-51); Metamyelocytes 1 % (-); Monocytes 1 % (2-9); Platelets Checked Yes; Segmented Neutrophils 95 % (42-75)
[2024-07-13 12:47] LABS: Anisocytosis Slight; Normal RBC Morphology No; Ovalocytes Slight; Total Cells Counted 100
[2024-07-13 13:21] LABS: ALT (SGPT) 24 U/L (0-50); AST (SGOT) 42 U/L (17-59); Albumin 4.8 g/dl (3.5-5.0); Alkaline Phosphatase 83 U/L (38-126); Blood Urea Nitrogen 32 mg/dl (9-20); Calcium 9.4 mg/dl (8.4-10.2); Carbon Dioxide 33 mmol/L (22-30); Chloride 94 mmol/L (98-107); Glucose 70 mg/dl (70-99); Iron 46 ug/dl (49-181); LDH 912 U/L (120-246); Sodium 137 mmol/L (135-145); Total Bilirubin 0.6 mg/dl (0.2-1.3); eGFR > 60.00
[2024-07-13 13:31] LABS: Percent Saturation 10 % (20-50); Total Iron Binding Capacity 440 ug/dl (261-462)
== END ==
LOC: REG 11:45
PROVIDERS: ATTENDING PHYSICIAN Internal Medicine Hematology & Oncology; FAMILY PHYSICIAN Student in an Organized Health Care Education/Training Program
DX: D45 Polycythemia vera (principal); C43.30 Malignant melanoma of unspecified part of face; C49.0 Malignant neoplasm of connective and soft tissue of head, face and neck
CPT/HCPCS: 36415; 80053; 82728; 83540; 83550; 83615; 85025

== ENCOUNTER → 2024-07-15 07:28 | Outpatient (REF) | payer MEDICARE, BC, SELFPAY | LOC: RAD 07:28 | PROVIDERS: ATTENDING PHYSICIAN Internal Medicine Hematology & Oncology; FAMILY PHYSICIAN Student in an Organized Health Care Education/Training Program | DX: D45 Polycythemia vera (principal); C49.0 Malignant neoplasm of connective and soft tissue of head, face and neck; C43.30 Malignant melanoma of unspecified part of face | CPT/HCPCS: 76700 ==

== ENCOUNTER → 2024-07-28 09:37 | Outpatient (REF) | payer MEDICARE, BC, SELFPAY ==
[2024-07-28 11:55] LABS: Blood Urea Nitrogen 23 mg/dl (9-20); Calcium 8.9 mg/dl (8.4-10.2); Carbon Dioxide 30 mmol/L (22-30); Chloride 91 mmol/L (98-107); Glucose 134 mg/dl (70-99); Sodium 136 mmol/L (135-145); eGFR > 60.00
== END ==
LOC: REG 09:37
PROVIDERS: ATTENDING PHYSICIAN Specialist; FAMILY PHYSICIAN Student in an Organized Health Care Education/Training Program
DX: E87.5 Hyperkalemia (principal); N13.30 Unspecified hydronephrosis; I11.0 Hypertensive heart disease with heart failure
CPT/HCPCS: 36415; 80048

== ENCOUNTER → 2024-08-16 11:17 | Outpatient (REF) | payer MEDICARE, BC, SELFPAY ==
[2024-08-16 12:05] LABS: % Basophils 0.5 % (0-2); % Eosinophils 0.9 % (0-6); % Immature Granulocytes 1.7 % (0-0.5); % Lymphocytes 4.6 % (20.5-51.1); % Monocytes 3.3 % (1.7-9.3); Absolute Basophils 0.1 10^3/uL (0-0.2); Absolute Eosinophils 0.2 10^3/uL (0-0.7); Absolute Immature Granulocytes 0.3 10^3/uL (0-0.05); Absolute Lymphocytes 0.8 10^3/uL (1.2-3.4); Absolute Monocytes 0.6 10^3/uL (0.1-0.6); Hematocrit 36.9 % (39.0-52.0); Hemoglobin 11.5 g/dL (13.0-18.0); Mean Corp Hgb Conc. 31.2 g/dL (33.0-37.0); Mean Corpuscular Hgb 25.9 pg (27.0-31.0); Mean Corpuscular Volume 83.1 fL (80.0-94.0); Mean Platelet Volume 10.6 fL (7.4-10.4); Nucleated Red Blood Cells % 0 % (-); Platelet Count 732 10^3/uL (130-400); Red Blood Cell Count 4.44 10^6/uL (4.70-6.10); Red Cell Dist. Width 18.1 % (11.5-14.5); White Blood Cell Count 16.8 10^3/uL (4.8-10.8)
[2024-08-16 12:22] LABS: Absolute Neutrophils -Man Diff 15.1 10^3/uL (1.4-6.5); Band Neutrophils 0 % (0-3); Lymphocytes 8 % (20-51); Monocytes 2 % (2-9); Normal RBC Morphology Yes; Platelets Checked Yes; Segmented Neutrophils 90 % (42-75); Total Cells Counted 100
[2024-08-16 12:27] LABS: ALT (SGPT) 21 U/L (0-50); AST (SGOT) 44 U/L (17-59); Albumin 4.6 g/dl (3.5-5.0); Alkaline Phosphatase 82 U/L (38-126); Blood Urea Nitrogen 26 mg/dl (9-20); Calcium 9.3 mg/dl (8.4-10.2); Carbon Dioxide 32 mmol/L (22-30); Chloride 93 mmol/L (98-107); Glucose 70 mg/dl (70-99); Iron 68 ug/dl (49-181); Potassium 5.2 mmol/L (3.5-5.1); Sodium 136 mmol/L (135-145); Total Bilirubin 0.6 mg/dl (0.2-1.3); eGFR > 60.00
[2024-08-16 12:36] LABS: Percent Saturation 15 % (20-50); Total Iron Binding Capacity 449 ug/dl (261-462)
[2024-08-16 12:37] LABS: LDH 917 U/L (120-246)
== END ==
LOC: REG 11:17
PROVIDERS: ATTENDING PHYSICIAN Internal Medicine Hematology & Oncology; FAMILY PHYSICIAN Student in an Organized Health Care Education/Training Program
DX: D45 Polycythemia vera (principal); C43.30 Malignant melanoma of unspecified part of face; C49.0 Malignant neoplasm of connective and soft tissue of head, face and neck
CPT/HCPCS: 36415; 80053; 82728; 83540; 83550; 83615; 85025

== ENCOUNTER → 2024-08-24 07:14 | Outpatient (REF) | payer MEDICARE, BC, SELFPAY ==
[2024-08-24 08:48] LABS: Blood Urea Nitrogen 23 mg/dl (9-20); Calcium 9.3 mg/dl (8.4-10.2); Carbon Dioxide 31 mmol/L (22-30); Chloride 95 mmol/L (98-107); Glucose 94 mg/dl (70-99); Osmolality Urine 445 mOsm/kg (300-900); Potassium 5.1 mmol/L (3.5-5.1); Sodium 136 mmol/L (135-145); Uric Acid 6.2 mg/dl (3.5-8.5); eGFR > 60.00
== END ==
LOC: REG 07:14
PROVIDERS: ATTENDING PHYSICIAN Specialist; FAMILY PHYSICIAN Student in an Organized Health Care Education/Training Program
DX: D63.8 Anemia in other chronic diseases classified elsewhere (principal); E87.1 Hypo-osmolality and hyponatremia; N13.30 Unspecified hydronephrosis; E87.5 Hyperkalemia
CPT/HCPCS: 36415; 80048; 83935; 84550

== ENCOUNTER → 2024-09-13 10:14 | Outpatient (REF) | payer MEDICARE, BC, SELFPAY ==
[2024-09-13 11:47] LABS: % Basophils 0.3 % (0-2); % Eosinophils 1.1 % (0-6); % Immature Granulocytes 1.8 % (0-0.5); % Lymphocytes 3.3 % (20.5-51.1); % Monocytes 2.4 % (1.7-9.3); % Neutrophils 91.1 % (42.2-75.2); Absolute Basophils 0.1 10^3/uL (0-0.2); Absolute Eosinophils 0.2 10^3/uL (0-0.7); Absolute Immature Granulocytes 0.3 10^3/uL (0-0.05); Absolute Lymphocytes 0.6 10^3/uL (1.2-3.4); Absolute Monocytes 0.4 10^3/uL (0.1-0.6); Absolute Neutrophils 16.1 10^3/uL (1.4-6.5); Hematocrit 36.9 % (39.0-52.0); Hemoglobin 11.5 g/dL (13.0-18.0); Mean Corp Hgb Conc. 31.2 g/dL (33.0-37.0); Mean Corpuscular Hgb 25.8 pg (27.0-31.0); Mean Corpuscular Volume 82.7 fL (80.0-94.0); Mean Platelet Volume 11.1 fL (7.4-10.4); Nucleated Red Blood Cells % 0 % (-); Platelet Count 799 10^3/uL (130-400); Red Blood Cell Count 4.46 10^6/uL (4.70-6.10); Red Cell Dist. Width 18.6 % (11.5-14.5); White Blood Cell Count 17.7 10^3/uL (4.8-10.8)
[2024-09-13 11:53] LABS: ALT (SGPT) 19 U/L (0-50); AST (SGOT) 42 U/L (17-59); Albumin 4.4 g/dl (3.5-5.0); Alkaline Phosphatase 82 U/L (38-126); Blood Urea Nitrogen 17 mg/dl (9-20); Calcium 8.9 mg/dl (8.4-10.2); Carbon Dioxide 29 mmol/L (22-30); Chloride 93 mmol/L (98-107); Glucose 147 mg/dl (70-99); Iron 54 ug/dl (49-181); Potassium 4.9 mmol/L (3.5-5.1); Sodium 135 mmol/L (135-145); Total Bilirubin 0.6 mg/dl (0.2-1.3); Total Protein 6.8 g/dl (6.3-8.2); eGFR > 60.00
[2024-09-13 11:57] LABS: LDH 988 U/L (120-246)
[2024-09-13 12:03] LABS: Percent Saturation 13 % (20-50); Total Iron Binding Capacity 388 ug/dl (261-462)
[2024-09-14 12:09] LABS: Absolute Neutrophils -Man Diff 16.9 10^3/uL (1.4-6.5); Band Neutrophils 7 % (0-3); Lymphocytes 2 % (20-51); Metamyelocytes 1 % (-); Segmented Neutrophils 89 % (42-75)
[2024-09-14 12:10] LABS: Total Cells Counted 100
[2024-09-14 12:12] LABS: Atypical Lymphocytes 1 %
[2024-09-14 12:13] LABS: Anisocytosis 2+
[2024-09-14 12:14] LABS: Acanthocytes 1+; Burr Cells 1+; Ovalocytes 1+; Poikilocytosis 2+
[2024-09-14 12:15] LABS: Normal RBC Morphology No; Platelets Checked Yes
== END ==
LOC: REG 10:14
PROVIDERS: ATTENDING PHYSICIAN Internal Medicine Hematology & Oncology; FAMILY PHYSICIAN Student in an Organized Health Care Education/Training Program
DX: D45 Polycythemia vera (principal); C43.30 Malignant melanoma of unspecified part of face; C49.0 Malignant neoplasm of connective and soft tissue of head, face and neck; I48.21 Permanent atrial fibrillation
CPT/HCPCS: 36415; 80053; 82728; 83540; 83550; 83615; 85025

== ENCOUNTER → 2024-09-28 11:20 | Outpatient (REF) | payer MEDICARE, BC, SELFPAY ==
[2024-09-28 12:45] LABS: Hematocrit 35.4 % (39.0-52.0); Hemoglobin 11.1 g/dL (13.0-18.0); Mean Corp Hgb Conc. 31.4 g/dL (33.0-37.0); Mean Corpuscular Hgb 25.7 pg (27.0-31.0); Mean Corpuscular Volume 81.9 fL (80.0-94.0); Mean Platelet Volume 10.8 fL (7.4-10.4); Platelet Count 711 10^3/uL (130-400); Red Blood Cell Count 4.32 10^6/uL (4.70-6.10); Red Cell Dist. Width 18.3 % (11.5-14.5)
[2024-09-28 12:50] LABS: APTT 38.5 Sec (23.4-35.0); INR 1.23; PT 15.7 Sec (11.4-14.6)
[2024-09-28 13:21] LABS: % Basophils 0.4 % (0-2); % Eosinophils 0.5 % (0-6); % Immature Granulocytes 1.3 % (0-0.5); % Lymphocytes 4.3 % (20.5-51.1); % Monocytes 2.3 % (1.7-9.3); % Neutrophils 91.2 % (42.2-75.2); Absolute Basophils 0.1 10^3/uL (0-0.2); Absolute Eosinophils 0.1 10^3/uL (0-0.7); Absolute Immature Granulocytes 0.2 10^3/uL (0-0.05); Absolute Lymphocytes 0.8 10^3/uL (1.2-3.4); Absolute Monocytes 0.4 10^3/uL (0.1-0.6); Absolute Neutrophils 16.4 10^3/uL (1.4-6.5); Nucleated Red Blood Cells % 0 % (-)
[2024-09-28 13:43] LABS: ALT (SGPT) 18 U/L (0-50); AST (SGOT) 39 U/L (17-59); Albumin 4.5 g/dl (3.5-5.0); Alkaline Phosphatase 78 U/L (38-126); Blood Urea Nitrogen 21 mg/dl (9-20); Calcium 8.9 mg/dl (8.4-10.2); Carbon Dioxide 32 mmol/L (22-30); Chloride 93 mmol/L (98-107); Glucose 73 mg/dl (70-99); Potassium 5.1 mmol/L (3.5-5.1); Sodium 134 mmol/L (135-145); Total Bilirubin 0.6 mg/dl (0.2-1.3); Total Protein 6.8 g/dl (6.3-8.2); eGFR > 60.00
== END ==
LOC: REG 11:20
PROVIDERS: ATTENDING PHYSICIAN Internal Medicine; FAMILY PHYSICIAN Student in an Organized Health Care Education/Training Program
DX: Z01.818 Encounter for other preprocedural examination (principal); I50.32 Chronic diastolic (congestive) heart failure
CPT/HCPCS: 36415; 80053; 85025; 85610; 85730

== ENCOUNTER → 2024-10-16 08:58 | Outpatient (REF) | payer MEDICARE, BC, SELFPAY ==
[2024-10-18 15:14] LABS: Calprotectin, Fecal 241 ug/g (<=49)
== END ==
LOC: REG 08:58
PROVIDERS: ATTENDING PHYSICIAN Internal Medicine Gastroenterology; FAMILY PHYSICIAN Student in an Organized Health Care Education/Training Program
DX: R19.7 Diarrhea, unspecified (principal)
CPT/HCPCS: 83993; 87045; 87046; 87077; 87324; 87328; 87329; 87427; 87449; 89055

== ENCOUNTER → 2024-10-21 11:53 | Outpatient (REF) | payer MEDICARE, BC, SELFPAY ==
[2024-10-21 12:38] LABS: % Basophils 0.4 % (0-2); % Eosinophils 0.7 % (0-6); % Immature Granulocytes 1.9 % (0-0.5); % Lymphocytes 4.5 % (20.5-51.1); % Monocytes 2.4 % (1.7-9.3); % Neutrophils 90.1 % (42.2-75.2); Absolute Basophils 0.1 10^3/uL (0-0.2); Absolute Eosinophils 0.2 10^3/uL (0-0.7); Absolute Immature Granulocytes 0.4 10^3/uL (0-0.05); Absolute Lymphocytes 0.9 10^3/uL (1.2-3.4); Absolute Monocytes 0.5 10^3/uL (0.1-0.6); Absolute Neutrophils 18.5 10^3/uL (1.4-6.5); Hematocrit 38.5 % (39.0-52.0); Hemoglobin 11.7 g/dL (13.0-18.0); Mean Corp Hgb Conc. 30.4 g/dL (33.0-37.0); Mean Corpuscular Hgb 24.9 pg (27.0-31.0); Mean Corpuscular Volume 82.1 fL (80.0-94.0); Mean Platelet Volume 10.9 fL (7.4-10.4); Nucleated Red Blood Cells % 0 % (-); Platelet Count 799 10^3/uL (130-400); Red Blood Cell Count 4.69 10^6/uL (4.70-6.10); Red Cell Dist. Width 18.3 % (11.5-14.5); White Blood Cell Count 20.6 10^3/uL (4.8-10.8)
[2024-10-21 13:15] LABS: ALT (SGPT) 19 U/L (0-50); AST (SGOT) 35 U/L (17-59); Albumin 4.2 g/dl (3.5-5.0); Alkaline Phosphatase 83 U/L (38-126); Blood Urea Nitrogen 16 mg/dl (9-20); Calcium 8.6 mg/dl (8.4-10.2); Carbon Dioxide 35 mmol/L (22-30); Chloride 89 mmol/L (98-107); Glucose 78 mg/dl (70-99); LDH 814 U/L (120-246); Potassium 4.7 mmol/L (3.5-5.1); Sodium 131 mmol/L (135-145); Total Bilirubin 0.7 mg/dl (0.2-1.3); Total Protein 6.6 g/dl (6.3-8.2); eGFR > 60.00
[2024-10-22 09:16] LABS: Absolute Neutrophils -Man Diff 18.5 10^3/uL (1.4-6.5); Band Neutrophils 4 % (0-3); Eosinophils 1 % (0-6); Lymphocytes 5 % (20-51); Monocytes 4 % (2-9); Platelets Checked Yes; Segmented Neutrophils 86 % (42-75)
[2024-10-22 09:17] LABS: Anisocytosis 1+; Hypochromasia 1+; Normal RBC Morphology No; Polychromasia 1+
[2024-10-22 09:18] LABS: Acanthocytes 2+; Burr Cells 1+; Ovalocytes 1+; Schistocytes FEW; Total Cells Counted 100
== END ==
LOC: REG 11:53
PROVIDERS: ATTENDING PHYSICIAN Internal Medicine Hematology & Oncology
DX: D45 Polycythemia vera (principal); C43.30 Malignant melanoma of unspecified part of face; C49.0 Malignant neoplasm of connective and soft tissue of head, face and neck
CPT/HCPCS: 36415; 80053; 83615; 85025

== ENCOUNTER 2024-11-08 06:25 | Day surgery (SDC) | payer MEDICARE, BC, SELFPAY | END 2024-11-08 11:30 | disposition home or self-care (01) | LOC: GI 06:25 | PROVIDERS: ATTENDING PHYSICIAN Internal Medicine Gastroenterology | DX: K57.30 Diverticulosis of large intestine without perforation or abscess without bleeding (principal); R19.7 Diarrhea, unspecified | CPT/HCPCS: 45331; 88305 ==

== ENCOUNTER → 2024-11-10 13:18 | Outpatient (REF) | payer MEDICARE, BC, SELFPAY | LOC: RAD 13:18 | PROVIDERS: ATTENDING PHYSICIAN Internal Medicine Gastroenterology; FAMILY PHYSICIAN Student in an Organized Health Care Education/Training Program | DX: R63.4 Abnormal weight loss (principal) | CPT/HCPCS: 74177; Q9967 ==

== ENCOUNTER → 2024-12-01 12:18 | Outpatient (REF) | payer MEDICARE, BC, SELFPAY ==
[2024-12-01 14:22] LABS: Hematocrit 40.1 % (39.0-52.0); Hemoglobin 12.4 g/dL (13.0-18.0); Mean Corp Hgb Conc. 30.9 g/dL (33.0-37.0); Mean Corpuscular Hgb 26.2 pg (27.0-31.0); Mean Corpuscular Volume 84.8 fL (80.0-94.0); Mean Platelet Volume 11.1 fL (7.4-10.4); Platelet Count 767 10^3/uL (130-400); Red Blood Cell Count 4.73 10^6/uL (4.70-6.10); Red Cell Dist. Width 20.2 % (11.5-14.5); White Blood Cell Count 18.7 10^3/uL (4.8-10.8)
[2024-12-01 14:43] LABS: % Basophils 0.6 % (0-2); % Eosinophils 0.9 % (0-6); % Immature Granulocytes 1.2 % (0-0.5); % Lymphocytes 4.8 % (20.5-51.1); % Monocytes 2.1 % (1.7-9.3); % Neutrophils 90.4 % (42.2-75.2); Absolute Basophils 0.1 10^3/uL (0-0.2); Absolute Eosinophils 0.2 10^3/uL (0-0.7); Absolute Immature Granulocytes 0.2 10^3/uL (0-0.05); Absolute Lymphocytes 0.9 10^3/uL (1.2-3.4); Absolute Monocytes 0.4 10^3/uL (0.1-0.6); Absolute Neutrophils 16.9 10^3/uL (1.4-6.5); Nucleated Red Blood Cells % 0 % (-)
[2024-12-01 14:44] LABS: Absolute Neutrophils -Man Diff 17.3 10^3/uL (1.4-6.5); Acanthocytes 2+; Anisocytosis 1+; Atypical Lymphocytes 1 %; Band Neutrophils 0 % (0-3); Hypochromasia 1+; Lymphocytes 5 % (20-51); Monocytes 1 % (2-9); Normal RBC Morphology No; Ovalocytes 1+; Platelets Checked Yes; Polychromasia 1+; Schistocytes FEW; Segmented Neutrophils 93 % (42-75)
[2024-12-01 14:45] LABS: Total Cells Counted 100
[2024-12-01 14:51] LABS: ALT (SGPT) 32 U/L (0-50); AST (SGOT) 38 U/L (17-59); Albumin 5.3 g/dl (3.5-5.0); Alkaline Phosphatase 87 U/L (38-126); Blood Urea Nitrogen 28 mg/dl (9-20); Calcium 9.2 mg/dl (8.4-10.2); Carbon Dioxide 32 mmol/L (22-30); Chloride 90 mmol/L (98-107); Glucose 63 mg/dl (70-99); Iron 106 ug/dl (49-181); Potassium 5.1 mmol/L (3.5-5.1); Sodium 134 mmol/L (135-145); Total Protein 7.7 g/dl (6.3-8.2); eGFR > 60.00
[2024-12-01 15:01] LABS: Percent Saturation 23 % (20-50); Total Iron Binding Capacity 451 ug/dl (261-462)
[2024-12-01 15:16] LABS: LDH 706 U/L (120-246)
[2024-12-01 16:00] LABS: Ferritin 32.4 ng/ml (17.9-464.0)
== END ==
LOC: REG 12:18
PROVIDERS: ATTENDING PHYSICIAN Internal Medicine Hematology & Oncology; FAMILY PHYSICIAN Student in an Organized Health Care Education/Training Program; REFERRING PHYSICIAN Specialist
DX: D45 Polycythemia vera (principal); C43.30 Malignant melanoma of unspecified part of face; C49.0 Malignant neoplasm of connective and soft tissue of head, face and neck
CPT/HCPCS: 36415; 80053; 82728; 83540; 83550; 83615; 85025

== ENCOUNTER → 2024-12-06 09:58 | Outpatient (REF) | payer MEDICARE, BC, SELFPAY | LOC: RAD 09:58 | PROVIDERS: ATTENDING PHYSICIAN Specialist; FAMILY PHYSICIAN Student in an Organized Health Care Education/Training Program | DX: N40.1 Benign prostatic hyperplasia with lower urinary tract symptoms (principal) | CPT/HCPCS: 76857 ==

== ENCOUNTER → 2024-12-30 11:23 | Outpatient (REF) | payer MEDICARE, BC, SELFPAY ==
[2024-12-30 12:42] LABS: Hematocrit 36.9 % (39.0-52.0); Hemoglobin 11.6 g/dL (13.0-18.0); Mean Corp Hgb Conc. 31.4 g/dL (33.0-37.0); Mean Corpuscular Hgb 27.2 pg (27.0-31.0); Mean Corpuscular Volume 86.4 fL (80.0-94.0); Mean Platelet Volume 10.6 fL (7.4-10.4); Platelet Count 626 10^3/uL (130-400); Red Blood Cell Count 4.27 10^6/uL (4.70-6.10); Red Cell Dist. Width 20.5 % (11.5-14.5); White Blood Cell Count 14.7 10^3/uL (4.8-10.8)
[2024-12-30 13:17] LABS: Absolute Neutrophils -Man Diff 13.5 10^3/uL (1.4-6.5); Band Neutrophils 0 % (0-3); Lymphocytes 6 % (20-51); Monocytes 1 % (2-9); Segmented Neutrophils 92 % (42-75)
[2024-12-30 13:18] LABS: % Basophils 0.4 % (0-2); % Eosinophils 1.1 % (0-6); % Immature Granulocytes 1.6 % (0-0.5); % Lymphocytes 4.8 % (20.5-51.1); % Monocytes 3.2 % (1.7-9.3); % Neutrophils 88.9 % (42.2-75.2); Absolute Basophils 0.1 10^3/uL (0-0.2); Absolute Eosinophils 0.2 10^3/uL (0-0.7); Absolute Immature Granulocytes 0.2 10^3/uL (0-0.05); Absolute Lymphocytes 0.7 10^3/uL (1.2-3.4); Absolute Monocytes 0.5 10^3/uL (0.1-0.6); Acanthocytes 2+; Anisocytosis 1+; Atypical Lymphocytes 1 %; Hypochromasia 1+; Normal RBC Morphology No; Nucleated Red Blood Cells % 0 % (-); Ovalocytes 1+; Platelets Checked Yes; Polychromasia 1+; Schistocytes Few; Total Cells Counted 100
[2024-12-30 13:35] LABS: ALT (SGPT) 21 U/L (0-50); AST (SGOT) 36 U/L (17-59); Alkaline Phosphatase 80 U/L (38-126); Blood Urea Nitrogen 25 mg/dl (9-20); Calcium 9.5 mg/dl (8.4-10.2); Carbon Dioxide 31 mmol/L (22-30); Chloride 91 mmol/L (98-107); Glucose 54 mg/dl (70-99); Iron 78 ug/dl (49-181); Sodium 132 mmol/L (135-145); Total Bilirubin 0.7 mg/dl (0.2-1.3); Total Protein 7.1 g/dl (6.3-8.2); eGFR > 60.00
[2024-12-30 13:46] LABS: Percent Saturation 17 % (20-50); Total Iron Binding Capacity 446 ug/dl (261-462)
[2024-12-30 13:58] LABS: Ferritin 24.8 ng/ml (17.9-464.0)
[2024-12-30 13:59] LABS: LDH 733 U/L (120-246)
== END ==
LOC: REG 11:23
PROVIDERS: ATTENDING PHYSICIAN Internal Medicine Hematology & Oncology; OTHER PHYSICIAN Student in an Organized Health Care Education/Training Program; REFERRING PHYSICIAN Specialist
DX: D45 Polycythemia vera (principal); C43.30 Malignant melanoma of unspecified part of face; C49.0 Malignant neoplasm of connective and soft tissue of head, face and neck
CPT/HCPCS: 36415; 80053; 82728; 83540; 83550; 83615; 85025

== ENCOUNTER → 2025-01-05 06:42 | Outpatient (REF) | payer MEDICARE, BC, SELFPAY ==
[2025-01-05 08:13] LABS: NT-proBNP 964 pg/ml
[2025-01-05 08:22] LABS: Albumin 4.8 g/dl (3.5-5.0); Blood Urea Nitrogen 27 mg/dl (9-20); Calcium 9.3 mg/dl (8.4-10.2); Carbon Dioxide 30 mmol/L (22-30); Chloride 95 mmol/L (98-107); Glucose 93 mg/dl (70-99); Phosphorus 3.9 mg/dl (2.5-4.5); Potassium 5.1 mmol/L (3.5-5.1); Sodium 135 mmol/L (135-145); eGFR > 60.00
[2025-01-05 08:46] LABS: Cortisol, Random 24.6 ug/dl; TSH Reflex To Free T4 2.92 uIU/ml (0.47-4.68)
[2025-01-06 14:56] LABS: Insulin, Random 4 uIU/mL
[2025-01-06 20:04] LABS: IGF-1 Z Score Calculation 0.1; Insulin-like Growth Factor I 77 ng/mL (15-177)
== END ==
LOC: REG 06:42
PROVIDERS: ATTENDING PHYSICIAN Student in an Organized Health Care Education/Training Program
DX: E16.2 Hypoglycemia, unspecified (principal); I50.32 Chronic diastolic (congestive) heart failure
CPT/HCPCS: 36415; 80069; 82533; 83525; 83880; 84305; 84443

== ENCOUNTER → 2025-01-13 14:18 | Outpatient (REF) | payer MEDICARE, BC, SELFPAY | LOC: RAD 14:18 | PROVIDERS: ATTENDING PHYSICIAN Internal Medicine Gastroenterology; FAMILY PHYSICIAN Student in an Organized Health Care Education/Training Program | DX: R19.4 Change in bowel habit (principal) | CPT/HCPCS: 74018 ==

== ENCOUNTER → 2025-01-18 10:02 | Outpatient (REF) | payer MEDICARE, BC, SELFPAY | LOC: RCS 10:02 | PROVIDERS: ATTENDING PHYSICIAN Internal Medicine Cardiovascular Disease; FAMILY PHYSICIAN Student in an Organized Health Care Education/Training Program | DX: I48.0 Paroxysmal atrial fibrillation (principal); R06.09 Other forms of dyspnea | CPT/HCPCS: 93306 ==

== ENCOUNTER → 2025-01-28 14:35 | Outpatient (REF) | payer MEDICARE, BC, SELFPAY | LOC: REG 14:35 | PROVIDERS: ATTENDING PHYSICIAN Internal Medicine Gastroenterology; FAMILY PHYSICIAN Student in an Organized Health Care Education/Training Program | DX: R19.4 Change in bowel habit (principal) | CPT/HCPCS: 87045; 87046; 87324; 87427; 87449 ==

== ENCOUNTER → 2025-02-11 10:36 | Outpatient (REF) | payer MEDICARE, BC, SELFPAY | LOC: RAD 10:36 | PROVIDERS: ATTENDING PHYSICIAN Student in an Organized Health Care Education/Training Program | DX: M25.461 Effusion, right knee (principal) | CPT/HCPCS: 76882 ==

== ENCOUNTER → 2025-02-14 14:32 | Outpatient (REF) | payer MEDICARE, BC, SELFPAY ==
[2025-02-14 15:42] LABS: Hemoglobin 11.6 g/dL (13.0-18.0); Mean Corp Hgb Conc. 32.2 g/dL (33.0-37.0); Mean Corpuscular Hgb 28.2 pg (27.0-31.0); Mean Corpuscular Volume 87.6 fL (80.0-94.0); Mean Platelet Volume 11.1 fL (7.4-10.4); Platelet Count 649 10^3/uL (130-400); Red Blood Cell Count 4.11 10^6/uL (4.70-6.10); Red Cell Dist. Width 18.3 % (11.5-14.5); White Blood Cell Count 13.5 10^3/uL (4.8-10.8)
[2025-02-14 15:49] LABS: % Basophils 0.4 % (0-2); % Eosinophils 0.7 % (0-6); % Immature Granulocytes 1.2 % (0-0.5); % Lymphocytes 4.5 % (20.5-51.1); % Monocytes 3.3 % (1.7-9.3); % Neutrophils 89.9 % (42.2-75.2); Absolute Basophils 0.1 10^3/uL (0-0.2); Absolute Eosinophils 0.1 10^3/uL (0-0.7); Absolute Immature Granulocytes 0.2 10^3/uL (0-0.05); Absolute Lymphocytes 0.6 10^3/uL (1.2-3.4); Absolute Monocytes 0.5 10^3/uL (0.1-0.6); Absolute Neutrophils 12.1 10^3/uL (1.4-6.5); Nucleated Red Blood Cells % 0 % (-)
[2025-02-14 15:53] LABS: ALT (SGPT) 18 U/L (0-50); AST (SGOT) 33 U/L (17-59); Albumin 4.3 g/dl (3.5-5.0); Alkaline Phosphatase 70 U/L (38-126); Blood Urea Nitrogen 27 mg/dl (9-20); Calcium 9.2 mg/dl (8.4-10.2); Carbon Dioxide 33 mmol/L (22-30); Chloride 96 mmol/L (98-107); Glucose 122 mg/dl (70-99); Iron 83 ug/dl (49-181); LDH 866 U/L (120-246); Potassium 5.1 mmol/L (3.5-5.1); Sodium 136 mmol/L (135-145); Total Bilirubin 0.6 mg/dl (0.2-1.3); Total Protein 6.8 g/dl (6.3-8.2); eGFR > 60.00
[2025-02-14 16:03] LABS: Percent Saturation 20 % (20-50); Total Iron Binding Capacity 409 ug/dl (261-462)
[2025-02-14 16:05] LABS: Absolute Neutrophils -Man Diff 11.8 10^3/uL (1.4-6.5); Band Neutrophils 0 % (0-3); Eosinophils 3 % (0-6); Lymphocytes 6 % (20-51); Metamyelocytes 1 % (-); Monocytes 1 % (2-9); Myelocytes 1 % (-); Segmented Neutrophils 88 % (42-75)
[2025-02-14 16:06] LABS: Normal RBC Morphology Yes; Platelets Checked Yes; Total Cells Counted 100
[2025-02-14 16:27] LABS: Ferritin 32.3 ng/ml (17.9-464.0)
== END ==
LOC: REG 14:32
PROVIDERS: ATTENDING PHYSICIAN Internal Medicine Hematology & Oncology; FAMILY PHYSICIAN Student in an Organized Health Care Education/Training Program
DX: D45 Polycythemia vera (principal); C43.30 Malignant melanoma of unspecified part of face; C49.0 Malignant neoplasm of connective and soft tissue of head, face and neck
CPT/HCPCS: 36415; 80053; 82728; 83540; 83550; 83615; 85025

== ENCOUNTER → 2025-03-29 14:17 | Outpatient (REF) | payer MEDICARE, BC, SELFPAY ==
[2025-03-29 15:50] LABS: ALT (SGPT) 18 U/L (0-50); AST (SGOT) 33 U/L (17-59); Albumin 4.8 g/dl (3.5-5.0); Alkaline Phosphatase 67 U/L (38-126); Blood Urea Nitrogen 31 mg/dl (9-20); Calcium 9.5 mg/dl (8.4-10.2); Carbon Dioxide 31 mmol/L (22-30); Chloride 98 mmol/L (98-107); Glucose 100 mg/dl (70-99); Iron 73 ug/dl (49-181); LDH 798 U/L (120-246); Potassium 5.2 mmol/L (3.5-5.1); Sodium 137 mmol/L (135-145); Total Bilirubin 0.7 mg/dl (0.2-1.3); Total Protein 7.1 g/dl (6.3-8.2); eGFR > 60.00
[2025-03-29 16:01] LABS: Percent Saturation 16 % (20-50); Total Iron Binding Capacity 449 ug/dl (261-462)
[2025-03-29 16:09] LABS: Hematocrit 35.3 % (39.0-52.0); Hemoglobin 11.3 g/dL (13.0-18.0); Mean Corpuscular Hgb 28.4 pg (27.0-31.0); Mean Corpuscular Volume 88.7 fL (80.0-94.0); Red Blood Cell Count 3.98 10^6/uL (4.70-6.10); Red Cell Dist. Width 17.4 % (11.5-14.5)
[2025-03-29 18:49] LABS: Mean Platelet Volume 11.3 fL (7.4-10.4); Platelet Count 607 10^3/uL (130-400); Platelets Checked Yes
[2025-03-29 18:50] LABS: Absolute Neutrophils -Man Diff 12.2 10^3/uL (1.4-6.5); Band Neutrophils 0 % (0-3); Lymphocytes 4 % (20-51); Segmented Neutrophils 94 % (42-75)
[2025-03-29 18:51] LABS: Normal RBC Morphology No; Polychromasia Slight
[2025-03-29 18:53] LABS: Total Cells Counted 100
[2025-03-31 10:45] LABS: % Basophils 0.5 % (0-2); % Eosinophils 0.7 % (0-6); % Immature Granulocytes 0.7 % (0-0.5); % Lymphocytes 4.8 % (20.5-51.1); % Monocytes 3.4 % (1.7-9.3); % Neutrophils 89.9 % (42.2-75.2); Absolute Lymphocytes 0.6 10^3/uL (1.2-3.4); Absolute Neutrophils 11.6 10^3/uL (1.4-6.5)
[2025-03-31 10:46] LABS: Absolute Basophils 0.1 10^3/uL (0-0.2); Absolute Eosinophils 0.1 10^3/uL (0-0.7); Absolute Immature Granulocytes 0.1 10^3/uL (0-0.05); Absolute Monocytes 0.4 10^3/uL (0.1-0.6); Nucleated Red Blood Cells % 0 % (-)
== END ==
LOC: REG 14:17
PROVIDERS: ATTENDING PHYSICIAN Internal Medicine Hematology & Oncology; FAMILY PHYSICIAN Student in an Organized Health Care Education/Training Program
DX: D45 Polycythemia vera (principal); C43.30 Malignant melanoma of unspecified part of face; C49.0 Malignant neoplasm of connective and soft tissue of head, face and neck
CPT/HCPCS: 36415; 80053; 82728; 83540; 83550; 83615; 85025

== ENCOUNTER → 2025-05-10 11:18 | Outpatient (REF) | payer MEDICARE, BC, SELFPAY ==
[2025-05-10 12:46] LABS: Hematocrit 35.5 % (39.0-52.0); Hemoglobin 11.3 g/dL (13.0-18.0); Mean Corp Hgb Conc. 31.8 g/dL (33.0-37.0); Mean Corpuscular Volume 87.0 fL (80.0-94.0); Platelet Count 478 10^3/uL (130-400); Red Cell Dist. Width 17.1 % (11.5-14.5)
[2025-05-10 12:51] LABS: ALT (SGPT) 18 U/L (0-50); AST (SGOT) 29 U/L (17-59); Albumin 4.5 g/dl (3.5-5.0); Alkaline Phosphatase 82 U/L (38-126); Blood Urea Nitrogen 23 mg/dl (9-20); Calcium 9.0 mg/dl (8.4-10.2); Carbon Dioxide 32 mmol/L (22-30); Chloride 95 mmol/L (98-107); Glucose 82 mg/dl (70-99); Iron 83 ug/dl (49-181); LDH 733 U/L (120-246); Potassium 5.0 mmol/L (3.5-5.1); Sodium 134 mmol/L (135-145); Total Protein 6.8 g/dl (6.3-8.2); eGFR > 60.00
[2025-05-10 13:01] LABS: Total Iron Binding Capacity 409 ug/dl (261-462)
[2025-05-10 13:26] LABS: Ferritin 30.4 ng/ml (17.9-464.0)
[2025-05-10 13:52] LABS: Absolute Neutrophils -Man Diff 10.5 10^3/uL (1.4-6.5); Anisocytosis 1+; Hypochromasia Slight; Normal RBC Morphology No; Nucleated Red Blood Cells % 0 % (-); Platelets Checked Yes; Polychromasia 1+
[2025-05-10 13:53] LABS: Acanthocytes 1+; Ovalocytes 1+; Total Cells Counted 100
== END ==
LOC: REG 11:18
PROVIDERS: ATTENDING PHYSICIAN Internal Medicine Hematology & Oncology; FAMILY PHYSICIAN Student in an Organized Health Care Education/Training Program
DX: D45 Polycythemia vera (principal); C43.30 Malignant melanoma of unspecified part of face; C49.0 Malignant neoplasm of connective and soft tissue of head, face and neck
CPT/HCPCS: 36415; 80053; 82728; 83540; 83550; 83615; 85025

== ENCOUNTER → 2025-06-07 14:13 | Outpatient (REF) | payer MEDICARE, BC, SELFPAY | LOC: RAD 14:13 | PROVIDERS: ATTENDING PHYSICIAN Internal Medicine Hematology & Oncology; FAMILY PHYSICIAN Student in an Organized Health Care Education/Training Program | DX: D45 Polycythemia vera (principal); C43.30 Malignant melanoma of unspecified part of face; C49.0 Malignant neoplasm of connective and soft tissue of head, face and neck | CPT/HCPCS: 76705 ==

== ENCOUNTER → 2025-06-21 11:25 | Outpatient (REF) | payer MEDICARE, BC, SELFPAY ==
[2025-06-21 12:58] LABS: Hematocrit 35.2 % (39.0-52.0); Hemoglobin 11.1 g/dL (13.0-18.0); Mean Corp Hgb Conc. 31.5 g/dL (33.0-37.0); Mean Corpuscular Volume 87.1 fL (80.0-94.0); Platelet Count 460 10^3/uL (130-400); Red Cell Dist. Width 17.3 % (11.5-14.5)
[2025-06-21 13:50] LABS: Nucleated Red Blood Cells % 0 % (-)
[2025-06-21 14:45] LABS: ALT (SGPT) 19 U/L (0-50); AST (SGOT) 30 U/L (17-59); Albumin 4.7 g/dl (3.5-5.0); Alkaline Phosphatase 73 U/L (38-126); Blood Urea Nitrogen 23 mg/dl (9-20); Calcium 9.2 mg/dl (8.4-10.2); Carbon Dioxide 29 mmol/L (22-30); Chloride 99 mmol/L (98-107); Glucose 92 mg/dl (70-99); Iron 69 ug/dl (49-181); LDH 647 U/L (120-246); Potassium 4.8 mmol/L (3.5-5.1); Sodium 134 mmol/L (135-145); Total Protein 7.0 g/dl (6.3-8.2); eGFR > 60.00
[2025-06-21 14:55] LABS: Total Iron Binding Capacity 436 ug/dl (261-462)
[2025-06-21 15:59] LABS: Ferritin 21.6 ng/ml (17.9-464.0)
== END ==
LOC: REG 11:25
PROVIDERS: ATTENDING PHYSICIAN Internal Medicine Hematology & Oncology; FAMILY PHYSICIAN Student in an Organized Health Care Education/Training Program
DX: D45 Polycythemia vera (principal); C43.30 Malignant melanoma of unspecified part of face; C49.0 Malignant neoplasm of connective and soft tissue of head, face and neck
CPT/HCPCS: 36415; 80053; 82728; 83540; 83550; 83615; 85025

== ENCOUNTER → 2025-08-06 11:27 | Outpatient (REF) | payer MEDICARE, BC, SELFPAY ==
[2025-08-06 13:05] LABS: ALT (SGPT) 20 U/L (0-50); AST (SGOT) 32 U/L (17-59); Albumin 4.8 g/dl (3.5-5.0); Alkaline Phosphatase 72 U/L (38-126); Blood Urea Nitrogen 22 mg/dl (9-20); Calcium 9.2 mg/dl (8.4-10.2); Carbon Dioxide 31 mmol/L (22-30); Chloride 96 mmol/L (98-107); Glucose 88 mg/dl (70-99); Iron 75 ug/dl (49-181); LDH 645 U/L (120-246); Potassium 4.8 mmol/L (3.5-5.1); Sodium 132 mmol/L (135-145); Total Protein 7.3 g/dl (6.3-8.2); eGFR > 60.00
[2025-08-06 13:14] LABS: Total Iron Binding Capacity 465 ug/dl (261-462)
[2025-08-06 13:24] LABS: Hematocrit 38.2 % (39.0-52.0); Hemoglobin 11.6 g/dL (13.0-18.0); Mean Corp Hgb Conc. 30.4 g/dL (33.0-37.0); Mean Corpuscular Volume 89.7 fL (80.0-94.0); Platelet Count 486 10^3/uL (130-400); Red Cell Dist. Width 17.7 % (11.5-14.5)
[2025-08-06 13:25] LABS: Nucleated Red Blood Cells % 0 % (-)
[2025-08-06 13:38] LABS: Ferritin 21.4 ng/ml (17.9-464.0)
[2025-08-06 13:51] LABS: Absolute Neutrophils -Man Diff 10.7 10^3/uL (1.4-6.5); Total Cells Counted 100
[2025-08-06 13:52] LABS: Platelets Checked Yes
[2025-08-06 13:53] LABS: Anisocytosis 1+; Hypochromasia Slight; Normal RBC Morphology No; Ovalocytes 1+
== END ==
LOC: REG 11:27
PROVIDERS: ATTENDING PHYSICIAN Internal Medicine Hematology & Oncology; FAMILY PHYSICIAN Student in an Organized Health Care Education/Training Program
DX: D45 Polycythemia vera (principal); C43.30 Malignant melanoma of unspecified part of face; D49.0 Neoplasm of unspecified behavior of digestive system
CPT/HCPCS: 36415; 80053; 82728; 83540; 83550; 83615; 85025

== ENCOUNTER → 2025-10-01 09:29 | Outpatient (REF) | payer MEDICARE, BC, SELFPAY ==
[2025-10-01 12:08] LABS: Hematocrit 34.9 % (39.0-52.0); Hemoglobin 10.7 g/dL (13.0-18.0); Mean Corp Hgb Conc. 30.7 g/dL (33.0-37.0); Mean Corpuscular Volume 84.1 fL (80.0-94.0); Nucleated Red Blood Cells % 0 % (-); Platelet Count 560 10^3/uL (130-400); Red Cell Dist. Width 16.4 % (11.5-14.5)
[2025-10-01 13:14] LABS: Absolute Neutrophils -Man Diff 10.8 10^3/uL (1.4-6.5); Anisocytosis 1+; Hypochromasia 1+; Normal RBC Morphology No; Ovalocytes 1+; Platelets Checked Yes; Total Cells Counted 100
[2025-10-01 13:23] LABS: ALT (SGPT) 18 U/L (0-50); AST (SGOT) 29 U/L (17-59); Albumin 4.7 g/dl (3.5-5.0); Alkaline Phosphatase 74 U/L (38-126); Blood Urea Nitrogen 23 mg/dl (9-20); Calcium 9.0 mg/dl (8.4-10.2); Carbon Dioxide 30 mmol/L (22-30); Chloride 93 mmol/L (98-107); Glucose 132 mg/dl (70-99); Iron 51 ug/dl (49-181); LDH 625 U/L (120-246); Potassium 5.0 mmol/L (3.5-5.1); Sodium 130 mmol/L (135-145); Total Protein 7.2 g/dl (6.3-8.2); eGFR > 60.00
[2025-10-01 13:32] LABS: Total Iron Binding Capacity 480 ug/dl (261-462)
[2025-10-01 13:55] LABS: Ferritin 14.3 ng/ml (17.9-464.0)
== END ==
LOC: REG 09:29
PROVIDERS: ATTENDING PHYSICIAN Internal Medicine Hematology & Oncology; FAMILY PHYSICIAN Student in an Organized Health Care Education/Training Program
DX: D45 Polycythemia vera (principal); C43.30 Malignant melanoma of unspecified part of face; C49.0 Malignant neoplasm of connective and soft tissue of head, face and neck
CPT/HCPCS: 36415; 80053; 82728; 83540; 83550; 83615; 85025